=== PATIENT | male | born 1955 | race Hispanic/Latino ===

== ENCOUNTER 2019-11-26 23:47 | Inpatient (IN) | payer OTHER ==
[2019-11-26] MEDS ORDERED: LORazepam 2 MG/ML VIAL IV ONE (23:58)
--- NOTE | 2019-11-27 00:01 | Emergency Department Report ---
ED Head Trauma HPI - General Stated complaint: HIGH BLOOD PRESSURE Time Seen by Provider: 11/26/19 23:57 Source: patient, EMS Mode of arrival: Stretcher Limitations: No Limitations - History of Present Illness Initial comments: Patient is a 64-year-old male that presents emergency room with complaints of fall and elevated blood pressure. Patient presents from a rehab facility. Patient has history of alcohol abuse. Patient recently stopped drinking. Patient states he feels shaky. Patient states he fell yesterday and hit his head and face on the floor. Patient is complaining of headache and facial pain and neck pain. Patient states his pain is better with rest and worse with movement. Patient also presented for elevated blood pressure. Patient was brought in by EMS. Patient was given clonidine in route and his blood pressure increased. Report received from EMS. EMS gave the patient 0.2 of clonidine in route. Patient is currently on a 1013 for suicidal ideations at the psychiatric facility. Patient has a sitter with him. MD Complaint: head injury, head pain, fall -: Sudden Location: frontal, face Loss of Consciousness: no Previous Trauma to this Area: No Place: home Severity: moderate Severity scale (0 -10): 6 Quality: sharp Consistency: constant Associated Symptoms: neck pain. denies: confusion, amnesia, repetitive questioning, vision changes, nausea, vomiting, vertigo, syncope, numbness, weakness, tingling - Related Data Allergies/Adverse reactions: Allergies Allergy/AdvReac Type Severity Reaction Status Date / Time No Known Allergies Allergy Verified 11/27/19 01:09 ED Review of Systems ROS: Stated complaint: HIGH BLOOD PRESSURE Other details as noted in HPI Constitutional: denies: chills, fever Eyes: denies: eye pain, eye discharge, vision change ENT: denies: ear pain, throat pain Respiratory: denies: cough, shortness of breath, wheezing Cardiovascular: denies: chest pain, palpitations Endocrine: no symptoms reported Gastrointestinal: denies: abdominal pain, nausea, diarrhea Genitourinary: denies: urgency, dysuria Musculoskeletal: denies: back pain, joint swelling, arthralgia Skin: denies: rash, lesions Neurological: headache. denies: weakness, paresthesias Psychiatric: denies: anxiety, depression Hematological/Lymphatic: denies: easy bleeding, easy bruising ED Past Medical Hx - Past Medical History Previous Medical History?: Yes Hx Hypertension: Yes - Surgical History Past Surgical History?: No - Family History Family history: no significant - Social History Smoking Status: Never Smoker Substance Use Type: Alcohol ED Physical Exam - General Limitations: No Limitations General appearance: alert, in no apparent distress - Head Head exam: Present: normocephalic - Eye Eye exam: Present: normal appearance, PERRL, periorbital swelling, periorbital tenderness, other (Subconjunctival hematomas noted bilateral eyes. Ecchymosis around both eyes noted) Pupils: Present: normal accommodation - ENT ENT exam: Present: mucous membranes moist - Neck Neck exam: Present: normal inspection. Absent: tenderness, meningismus - Respiratory Respiratory exam: Present: normal lung sounds bilaterally. Absent: respiratory distress, wheezes, rales - Cardiovascular Cardiovascular Exam: Present: regular rate, normal rhythm. Absent: systolic murmur, diastolic murmur, rubs, gallop - GI/Abdominal GI/Abdominal exam: Present: soft, normal bowel sounds. Absent: distended, tenderness, guarding - Rectal Rectal exam: Present: deferred - Extremities Exam Extremities exam: Present: normal inspection - Back Exam Back exam: Present: normal inspection - Neurological Exam Neurological exam: Present: alert, oriented X3 - Psychiatric Psychiatric exam: Present: normal affect, normal mood - Skin Skin exam: Present: warm, dry, intact, normal color, ecchymosis (Bilateral supra and infraorbital). Absent: rash ED Course Vital Signs 11/27/19 11/27/19 11/27/19 00:08 00:17 00:28 Temperature 98.0 F Pulse Rate 124 H 101 H Respiratory 24 24 24 Rate Blood Pressure Blood Pressure 164/111 [Left] O2 Sat by Pulse 95 95 95 Oximetry 11/27/19 11/27/19 11/27/19 00:53 01:01 01:15 Temperature Pulse Rate 123 H Respiratory 18 23 Rate Blood Pressure 156/105 172/109 155/101 Blood Pressure [Left] O2 Sat by Pulse 94 96 94 Oximetry 11/27/19 11/27/19 11/27/19 01:30 01:45 02:00 Temperature Pulse Rate Respiratory 18 12 28 H Rate Blood Pressure 165/101 165/101 150/107 Blood Pressure [Left] O2 Sat by Pulse 97 97 95 Oximetry 11/27/19 11/27/19 11/27/19 02:15 02:30 02:45 Temperature Pulse Rate 115 H 129 H 118 H Respiratory 25 H 15 22 Rate Blood Pressure 163/105 150/107 154/112 Blood Pressure [Left] O2 Sat by Pulse 96 97 96 Oximetry 11/27/19 03:00 Temperature Pulse Rate 122 H Respiratory 21 Rate Blood Pressure 163/105 Blood Pressure [Left] O2 Sat by Pulse 98 Oximetry - Reevaluation(s) Reevaluation #1: Initial evaluation done. Patient will be given Ativan for possible alcohol withdrawal. Patient will be connected to a potline monitor. Patient's blood pressure was treated as needed. Patient will have labs and CTs done. 11/27/19 00:01 Reevaluation #2: Patient having increased shaking. Patient placed on a CIWA protocol 11/27/19 00:39 Reevaluation #3: Patient is EKG and done shows tachycardic rhythm. Patient has not received his fluids yet. Patient will be given fluids. 11/27/19 02:08 Reevaluation #4: Patient's heart rate improved and is a sinus tachycardia With minimal fluids. Patient is still shaking. I discussed all results with patient. I discussed plan of care with patient. Patient agrees with plan of care and admission. Patient to be admitted to the hospitalist service. 11/27/19 02:23 - Consultations Consultation #1: Hospitalist consulted for admission. Hospitalist admit patient. 11/27/19 02:46 - Lab Data Result diagrams: 11/27/19 00:06 11/27/19 00:06 Lab Results 11/27/19 11/27/19 11/27/19 Range/Units 00:06 00:06 00:06 WBC 6.8 (4.5-11.0) K/mm3 RBC 4.42 (3.65-5.03) M/mm3 Hgb 13.2 (11.8-15.2) gm/dl Hct 39.0 (35.5-45.6) % MCV 88 (84-94) fl MCH 30 (28-32) pg MCHC 34 (32-34) % RDW 19.3 H (13.2-15.2) % Plt Count 247 (140-440) K/mm3 Lymph % (Auto) 10.7 L (13.4-35.0) % [place] % (Auto) 5.6 (0.0-7.3) % Eos % (Auto) 0.0 (0.0-4.3) % Baso % (Auto) 0.6 (0.0-1.8) % Lymph # 0.7 L (1.2-5.4) K/mm3 [place] # 0.4 (0.0-0.8) K/mm3 Eos # 0.0 (0.0-0.4) K/mm3 Baso # 0.0 (0.0-0.1) K/mm3 Seg Neutrophils % 83.1 H (40.0-70.0) % Seg Neutrophils # 5.6 (1.8-7.7) K/mm3 Sodium 138 (137-145) mmol/L Potassium 4.0 (3.6-5.0) mmol/L Chloride 96.2 L (98-107) mmol/L Carbon Dioxide 24 (22-30) mmol/L Anion Gap 22 mmol/L BUN 6 L (9-20) mg/dL Creatinine 0.8 (0.8-1.5) mg/dL Estimated GFR > 60 ml/min BUN/Creatinine Ratio 8 % Glucose 142 H (75-100) mg/dL Calcium 8.9 (8.4-10.2) mg/dL Total Bilirubin 1.70 H (0.1-1.2) mg/dL AST 45 H (5-40) units/L ALT 59 H (7-56) units/L Alkaline Phosphatase 124 (35-129) units/L Total Protein 5.9 L (6.3-8.2) g/dL Albumin 4.0 (3.9-5) g/dL Albumin/Globulin Ratio 2.1 % Urine Color (Yellow) Urine Turbidity (Clear) Urine pH (5.0-7.0) Ur Specific [address] (1.003-1.030) Urine Protein (Negative) mg/dL Urine Glucose (UA) (Negative) mg/dL Urine Ketones (Negative) mg/dL Urine Blood (Negative) Urine Nitrite (Negative) Urine Bilirubin (Negative) Urine Urobilinogen (<2.0) mg/dL Ur Leukocyte Esterase (Negative) Urine WBC (Auto) (0.0-6.0) /HPF Urine RBC (Auto) (0.0-6.0) /HPF Urine Bacteria (Auto) (Negative) /HPF Urine Mucus /HPF Salicylates < 0.3 L (2.8-20.0) mg/dL Urine Opiates Screen Urine Methadone Screen Acetaminophen (10.0-30.0) ug/mL Ur Barbiturates Screen Ur Phencyclidine Scrn Ur Amphetamines Screen U Benzodiazepines Scrn Urine Cocaine Screen U Marijuana (THC) Screen Drugs of Abuse Note Plasma/Serum Alcohol (0-0.07) % 11/27/19 11/27/19 11/27/19 Range/Units 00:06 00:06 01:00 WBC (4.5-11.0) K/mm3 RBC (3.65-5.03) M/mm3 Hgb (11.8-15.2) gm/dl Hct (35.5-45.6) % MCV (84-94) fl MCH (28-32) pg MCHC (32-34) % RDW (13.2-15.2) % Plt Count (140-440) K/mm3 Lymph % (Auto) (13.4-35.0) % [place] % (Auto) (0.0-7.3) % Eos % (Auto) (0.0-4.3) % Baso % (Auto) (0.0-1.8) % Lymph # (1.2-5.4) K/mm3 [place] # (0.0-0.8) K/mm3 Eos # (0.0-0.4) K/mm3 Baso # (0.0-0.1) K/mm3 Seg Neutrophils % (40.0-70.0) % Seg Neutrophils # (1.8-7.7) K/mm3 Sodium (137-145) mmol/L Potassium (3.6-5.0) mmol/L Chloride (98-107) mmol/L Carbon Dioxide (22-30) mmol/L Anion Gap mmol/L BUN (9-20) mg/dL Creatinine (0.8-1.5) mg/dL Estimated GFR ml/min BUN/Creatinine Ratio % Glucose (75-100) mg/dL Calcium (8.4-10.2) mg/dL Total Bilirubin (0.1-1.2) mg/dL AST (5-40) units/L ALT (7-56) units/L Alkaline Phosphatase (35-129) units/L Total Protein (6.3-8.2) g/dL Albumin (3.9-5) g/dL Albumin/Globulin Ratio % Urine Color Yellow (Yellow) Urine Turbidity Slightly-cloudy (Clear) Urine pH 7.0 (5.0-7.0) Ur Specific [address] 1.012 (1.003-1.030) Urine Protein <15 mg/dl (Negative) mg/dL Urine Glucose (UA) 50 (Negative) mg/dL Urine Ketones Neg (Negative) mg/dL Urine Blood Sm (Negative) Urine Nitrite Neg (Negative) Urine Bilirubin Neg (Negative) Urine Urobilinogen < 2.0 (<2.0) mg/dL Ur Leukocyte Esterase Mod (Negative) Urine WBC (Auto) 128.0 H (0.0-6.0) /HPF Urine RBC (Auto) 9.0 (0.0-6.0) /HPF Urine Bacteria (Auto) 3+ (Negative) /HPF Urine Mucus Few /HPF Salicylates (2.8-20.0) mg/dL Urine Opiates Screen Urine Methadone Screen Acetaminophen < 5.0 L (10.0-30.0) ug/mL Ur Barbiturates Screen Ur Phencyclidine Scrn Ur Amphetamines Screen U Benzodiazepines Scrn Urine Cocaine Screen U Marijuana (THC) Screen Drugs of Abuse Note Plasma/Serum Alcohol < 0.01 (0-0.07) % 11/27/19 Range/Units 01:00 WBC (4.5-11.0) K/mm3 RBC (3.65-5.03) M/mm3 Hgb (11.8-15.2) gm/dl Hct (35.5-45.6) % MCV (84-94) fl MCH (28-32) pg MCHC (32-34) % RDW (13.2-15.2) % Plt Count (140-440) K/mm3 Lymph % (Auto) (13.4-35.0) % [place] % (Auto) (0.0-7.3) % Eos % (Auto) (0.0-4.3) % Baso % (Auto) (0.0-1.8) % Lymph # (1.2-5.4) K/mm3 [place] # (0.0-0.8) K/mm3 Eos # (0.0-0.4) K/mm3 Baso # (0.0-0.1) K/mm3 Seg Neutrophils % (40.0-70.0) % Seg Neutrophils # (1.8-7.7) K/mm3 Sodium (137-145) mmol/L Potassium (3.6-5.0) mmol/L Chloride (98-107) mmol/L Carbon Dioxide (22-30) mmol/L Anion Gap mmol/L BUN (9-20) mg/dL Creatinine (0.8-1.5) mg/dL Estimated GFR ml/min BUN/Creatinine Ratio % Glucose (75-100) mg/dL Calcium (8.4-10.2) mg/dL Total Bilirubin (0.1-1.2) mg/dL AST (5-40) units/L ALT (7-56) units/L Alkaline Phosphatase (35-129) units/L Total Protein (6.3-8.2) g/dL Albumin (3.9-5) g/dL Albumin/Globulin Ratio % Urine Color (Yellow) Urine Turbidity (Clear) Urine pH (5.0-7.0) Ur Specific [address] (1.003-1.030) Urine Protein (Negative) mg/dL Urine Glucose (UA) (Negative) mg/dL Urine Ketones (Negative) mg/dL Urine Blood (Negative) Urine Nitrite (Negative) Urine Bilirubin (Negative) Urine Urobilinogen (<2.0) mg/dL Ur Leukocyte Esterase (Negative) Urine WBC (Auto) (0.0-6.0) /HPF Urine RBC (Auto) (0.0-6.0) /HPF Urine Bacteria (Auto) (Negative) /HPF Urine Mucus /HPF Salicylates (2.8-20.0) mg/dL Urine Opiates Screen Presumptive negative Urine Methadone Screen Presumptive negative Acetaminophen (10.0-30.0) ug/mL Ur Barbiturates Screen Presumptive positive Ur Phencyclidine Scrn Presumptive negative Ur Amphetamines Screen Presumptive negative U Benzodiazepines Scrn Presumptive negative Urine Cocaine Screen Presumptive negative U Marijuana (THC) Screen Presumptive negative Drugs of Abuse Note Disclamer Plasma/Serum Alcohol (0-0.07) % - EKG Data -: EKG Interpreted by Ar EKG shows normal: sinus rhythm, axis, intervals, QRS complexes, ST-T waves Rate: tachycardia - Radiology Data Radiology results: report reviewed CT HEAD WITHOUT CONTRAST INDICATION: fall. pain. TECHNIQUE: Axial slices were obtained through the head. Coronal and sagittal reformatted images were obtained. COMPARISON: None available. FINDINGS: There is no intracranial hemorrhage or extra-axial fluid collection. Ventricles, basilar cisterns, and sulci appear within normal limits for age. There is no mass lesion or midline shift. No acute territorial infarct is identified. Bone windows demonstrate no acute osseous abnormality. There is mucosal thickening in the maxillary sinuses and a few ethmoid air cells. TECHNIQUE: All CT scans at this facility use dose modulation, iterative reconstruction, automated exposure control, weight based dosing, when appropriate, to reduce radiation dose to as low as re asonably achievable. IMPRESSION: 1. No acute intracranial abnormality. 2. There is mucosal thickening in the maxillary sinuses and a few of air cells. CT facial bones wo con INDICATION: MAIN: fall. FACIAL pain/ SWELLING.. TECHNIQUE: All CT scans at this location are performed using the following dose modulation technique: Automated exposure control. Helical slices were obtained through the facial bones. Coronal and sagittal reformatted images were obtained. COMPARISON: None available. FINDINGS: There is mucosal thickening in the maxillary sinuses and in several ethmoid air cells. No fracture is seen. No dislocation is seen. IMPRESSION: 1. No fracture is seen. There is mucosal thickening in the maxillary sinuses and in several ethmoid air cells CT cervical spine wo con INDICATION: fall. pain.. TECHNIQUE: All CT scans at this location are performed using the following dose modulation technique: Automated exposure control. Helical slices were obtained through the cervical spine. Coronal and sagittal reformatted images were obtained. COMPARISON: None available. FINDINGS: There is discogenic degenerative change throughout the cervical spine with disc space narrowing and osteophyte formation. No fracture or subluxation is seen. The prevertebral soft tissues are unremarkable. Mild atherosclerotic calcifications are noted in the carotid arteries. IMPRESSION: 1. No fracture or subluxation is seen. Degenerative changes are noted. - Medical Decision Making Patient is a 64-year-old male that presents emergency room from a local psychiatric facility. Patient has a history of alcohol abuse and is in a psychiatric facility for suicidal ideations and on a 1013. Patient came to the ER via EMS but with a sitter from the psychiatric facility. Patient had a fall yesterday where he sustained a head injury, facial trauma, bilateral eye ecchymosis and subconjunctival hematomas. Patient also complained of neck pain. Patient had CTs done of his head neck, facial bones. Patient CTs were all negative for acute findings. Patient presented to the ER with malignant hypert ension and alcohol withdrawal. Patient was placed on a CIWA protocol. Patient given Ativan and patient continued to have mild shakes. Patient had labs done which showed an abnormal chemistry, the rest of the labs are unremarkable. Patient's UDS was positive for barbiturates. Patient's tachycardia improved with fluids. Patient was given saline bolus and banana bag. Patient admitted to the hospitalist service and into the ICU for further evaluation and treatment. Differential diagnosis to include, tachycardia, alcohol withdrawal, fall, head injury, facial trauma, facial pain, neck pain, strain, sprain, fracture, electrolyte imbalance, dehydration, malignant hypertension, tachycardia, - Differential Diagnosis Tachycardia, malignant htn, fall, DTs, head injury, facial trauma, neck angelica Critical Care Time: Yes Critical care time in (mins) excluding proc time.: 45 Critical care attestation.: If time is entered above; I have spent that time in minutes in the direct care of this critically ill patient, excluding procedure time. Critical Care Time: 45 minutes ED Disposition Clinical Impression: Malignant hypertension, Alcohol abuse, Neck pain, Facial pain, Tachycardia Alcohol withdrawal Qualifiers: Complication of substance-induced condition: with delirium Qualified Code(s): F10.231 - Alcohol dependence with withdrawal delirium Headache Qualifiers: Headache type: post-traumatic Headache chronicity pattern: acute headache Intractability: intractable Qualified Code(s): G44.311 - Acute post-traumatic he adache, intractable Facial trauma Qualifiers: Encounter type: initial encounter Qualified Code(s): S09.93XA - Unspecified i njury of face, initial encounter Head injury Qualifiers: Encounter type: initial encounter Qualified Code(s): S09.90XA - Unspecified injury of head, initial encounter UTI (urinary tract infection) Qualifiers: Urinary tract infection type: acute cystitis Hematuria presence: with hematuria Qualified Code(s): N30.01 - Acute cystitis with hematuria Disposition: OP ADMIT IP TO THIS HOSP Is pt being admited?: Yes Does the pt Need Aspirin: No Condition: Critical Time of Disposition: 02:27
[2019-11-27] MEDS ORDERED: LORazepam 2 MG/ML VIAL IV ONE (00:22)
[2019-11-27 00:28] LABS: Basophils % (Auto) 0.6 % (0.0-1.8); Hemoglobin 13.2 gm/dl (11.8-15.2); Lymphocytes # (Auto) 0.7 K/mm3 (1.2-5.4); Lymphocytes % (Auto) 10.7 % (13.4-35.0); Mean Corpuscular HGB Conc 34 % (32-34); Mean Corpuscular Volume 88 fl (84-94); Monocytes # (Auto) 0.4 K/mm3 (0.0-0.8); Monocytes % (Auto) 5.6 % (0.0-7.3); Platelet Count 247 K/mm3 (140-440); Red Blood Count 4.42 M/mm3 (3.65-5.03); Red Cell Distribution Width 19.3 % (13.2-15.2)
[2019-11-27 00:57] LABS: Alanine Aminotransferase 59 units/L (7-56); BUN/Creatinine Ratio 8; Blood Urea Nitrogen 6 mg/dL (9-20); Calcium 8.9 mg/dL (8.4-10.2); Hemolysis Index 4
[2019-11-27] MEDS ORDERED: SODIUM CHLORIDE 0.9% 1000 ML 1,000 ML IV ONE (01:00)
[2019-11-27] MEDS ORDERED: THIAMINE 100 MG, FOLIC ACID 1 MG, MULTIPLE VITAMIN INJ, ADULT 10 ML in SODIUM CHLORIDE ... IV ONE ×2 (01:00→04:03)
[2019-11-27 01:16] LABS: Bacteria,Urine 3+ /HPF (Negative); Bilirubin,Urine NEG (Negative); Blood,Urine SM (Negative); Color,Urine Yellow (Yellow); Mucus,Urine FEW /HPF; Protein,Urine <15 mg/dL mg/dL (Negative); Urobilinogen,Urine < 2.0 mg/dL (<2.0)
--- NOTE | 2019-11-27 01:20 | Cat Scan Report ---
CT HEAD WITHOUT CONTRAST INDICATION: fall. pain. TECHNIQUE: Axial slices were obtained through the head. Coronal and sagittal reformatted images were obtained. COMPARISON: None available. FINDINGS: There is no intracranial hemorrhage or extra-axial fluid collection. Ventricles, basilar cisterns, an d sulci appear within normal limits for age. There is no mass lesion or midline shift. No acute delvin torial infarct is identified. Bone windows demonstrate no acute osseous abnormality. There is mucosal thickening in the maxillary s inuses and a few ethmoid air cells. TECHNIQUE: All CT scans at this facility use dose modulation, iterative reconstruction, automated ex posure control, weight based dosing, when appropriate, to reduce radiation dose to as low as reasonab ly achievable. IMPRESSION: 1. No acute intracranial abnormality. 2. There is mucosal thickening in the maxillary sinuses and a few of air cells. Signer Name: Alberto Ocampo MD Signed: 11/27/2019 1:16 AM Workstation Name: [id number]
[2019-11-27 01:21] LABS: Amphetamine Screen,Urine PRESUMPTIVE NEGATIVE; Benzodiazepines Screen,Urine PRESUMPTIVE NEGATIVE; Cannabinoid Screen,Urine PRESUMPTIVE NEGATIVE; Cocaine Screen,Urine PRESUMPTIVE NEGATIVE; Methadone Screen,Urine PRESUMPTIVE NEGATIVE; Opiate Screen,Urine PRESUMPTIVE NEGATIVE
--- NOTE | 2019-11-27 01:35 | Cat Scan Report ---
CT cervical spine wo con INDICATION: fall. pain.. TECHNIQUE: All CT scans at this location are performed using the following dose modulation technique: Automated exposure control. Helical slices were obtained through the cervical spine. Coronal and sagittal refor matted images were obtained. COMPARISON: None available. FINDINGS: There is discogenic degenerative change throughout the cervical spine with disc space narrowing and o steophyte formation. No fracture or subluxation is seen. The prevertebral soft tissues are unremarkable. Mild atherosclerotic calcifications are noted in the carotid arteries. IMPRESSION: 1. No fracture or subluxation is seen. Degenerative changes are noted. Signer Name: Alberto Ocampo MD Signed: 11/27/2019 1:30 AM Workstation Name: [id number]
--- NOTE | 2019-11-27 01:38 | Cat Scan Report ---
CT facial bones wo con INDICATION: MAIN: fall. FACIAL pain/ SWELLING.. TECHNIQUE: All CT scans at this location are performed using the following dose modulation technique: Automated exposure control. Helical slices were obtained through the facial bones. Coronal and sagittal reforma tted images were obtained. COMPARISON: None available. FINDINGS: There is mucosal thickening in the maxillary sinuses and in several ethmoid air cells. No fracture is seen. No dislocation is seen. IMPRESSION: 1. No fracture is seen. There is mucosal thickening in the maxillary sinuses and in several ethmoid air cells Signer Name: Alberto Ocampo MD Signed: 11/27/2019 1:33 AM Workstation Name: [id number]
[2019-11-27] MEDS: LORazepam 2 MG/ML VIAL IV PRN ×8 (02:02→11:21)
[2019-11-27] MEDS ORDERED: dilTIAZem 25 MG/5 ML INJ IV ONE (02:07)
[2019-11-27] MEDS ORDERED: dilTIAZem/D5W 100 MG/100 ML BAG IV SCH (03:00)
[2019-11-27] MEDS ORDERED: dilTIAZem 50 MG/10 ML INJ IV ONE (03:00)
[2019-11-27] MEDS ORDERED: ACETAMINOPHEN 325 MG TAB PO PRN (04:10)
[2019-11-27] MEDS ORDERED: ONDANSETRON 4 MG/2 ML INJ IV PRN (04:10)
--- NOTE | 2019-11-27 04:22 | History and Physical Report ---
History of Present Illness Date of examination: 11/27/19 Chief complaint: Patient transferred from [facility] for delirium tremens and uncontrolled hypertension History of present illness: Partha hoffman is a 64-year-old male that presents to the emergency room with complaints of fall and elevated blood pressure. Patient presents from a [facility] facility. Patient has history of alcohol abuse. Patient recently stopped drinking. Patient is confused, his speech is incomprehensible, appears to be in delirium and I am unable to obtain any history at this time. He is awake and oriented to name only at this time. Apparently he fell yesterday and hit his head and face on the floor. Patient is complaining of headache and facial pain and neck pain. Patient was brought in by EMS. Patient was given clonidine in route . CT of the head and x-rays of the neck and face did not reveal any acute lesions. Patient is being admitted to critical care unit for delirium tremens. Past History Past Medical History: hypertension Past Surgical History: Other (Unable to obtain at this time) Social history: alcohol abuse Family history: other (Unable to obtain at this time as the patient is confused) Medications and Allergies Allergies Allergy/AdvReac Type Severity Reaction Status Date / Time No Known Allergies Allergy Verified 11/27/19 01:09 Active Meds: Active Medications Acetaminophen (Tylenol) 650 mg PO Q6H PRN PRN Reason: Pain MILD(1-3)/Fever >100.5/HANSON Diltiazem HCl (Cardizem) 60 mg PO Q8H ERIC Thiamine HCl 100 mg/ Folic Acid 1 mg/ Multivitamins/Minerals 10 ml/ Sodium Chloride 1,011.2 mls @ 250 mls/hr IV ONCE ONE Stop: 11/27/19 05:02 Last Admin: 11/27/19 03:09 Dose: 250 mls/hr Documented by: Thiamine HCl 100 mg/ Folic Acid 1 mg/ Multivitamins/Minerals 10 ml/ Sodium Chloride 1,011.2 mls @ 250 mls/hr IV ONCE ONE Stop: 11/27/19 08:05 Ceftriaxone Sodium (Rocephin/Ns 1 Gm/50 Ml) 1 gm in 50 mls @ 100 mls/hr IV Q24HR ERIC; Protocol Sodium Chloride (Nacl 0.9% 1000 Ml) 1,000 mls @ 75 mls/hr IV DIRECT ERIC Lorazepam (Ativan) 2 mg IV Q1HR PRN PRN Reason: CIWA-Ar 8-15 Last Admin: 11/27/19 02:02 Dose: 2 mg Documented by: Lorazepam (Ativan) 4 mg IV Q1HR PRN PRN Reason: CIWA-Ar 16-25 Last Admin: 11/27/19 03:35 Dose: 4 mg Documented by: Lorazepam (Ativan) 4 mg IV Q15MIN PRN PRN Reason: CIWA-Ar >25 Ondansetron HCl (Zofran) 4 mg IV Q8H PRN PRN Reason: Nausea And Vomiting Sodium Chloride (Sodium Chloride Flush Syringe 10 Ml) 10 ml IV BID ERIC Sodium Chloride (Sodium Chloride Flush Syringe 10 Ml) 10 ml IV PRN PRN PRN Reason: LINE FLUSH Review of Systems All systems: negative (Review of systems as stated above in the history of present illness otherwise unable to perform at this time as the patient is confused and in delirium from alcohol withdrawal) Exam - Constitutional Vitals: Temp Pulse Resp BP Pulse Ox 98.0 F 122 H 21 163/105 98 11/27/19 00:08 11/27/19 03:00 11/27/19 03:00 11/27/19 03:00 11/27/19 03:00 General appearance: Present: no acute distress, well-nourished, other (Confused and tremulous) - EENT Eyes: Present: PERRL, EOM intact ENT: hearing intact, clear oral mucosa, other (Right subconjunctival hemorrhage and right rossana-orbital hematoma) - Neck Neck: Present: supple, normal ROM. Absent: masses or JVD - Respiratory Respiratory effort: normal Respiratory: bilateral: CTA - Cardiovascular Rhythm: other (Tachycardia) Heart Sounds: Present: S1 & S2 - Extremities Extremities: No edema - Abdominal General gastrointestinal: Present: soft, non-tender. Absent: hepatomegaly, splenomegaly Male genitourinary: Present: deferred - Rectal Rectal Exam: deferred - Integumentary Integumentary: Present: clear (Superficial bruises on the knees), warm, normal turgor - Psychiatric Psychiatric: other (Confused) - Neurologic Neurologic: moves all extremities, other (Tremulous) Results - Labs CBC & Chem 7: 11/27/19 00:06 11/27/19 00:06 Labs: Abnormal lab results 11/27/19 11/27/19 11/27/19 Range/Units 00:06 00:06 00:06 RDW 19.3 H (13.2-15.2) % Lymph % (Auto) 10.7 L (13.4-35.0) % Lymph # 0.7 L (1.2-5.4) K/mm3 Seg Neutrophils % 83.1 H (40.0-70.0) % Chloride 96.2 L (98-107) mmol/L BUN 6 L (9-20) mg/dL Glucose 142 H (75-100) mg/dL Total Bilirubin 1.70 H (0.1-1.2) mg/dL AST 45 H (5-40) units/L ALT 59 H (7-56) units/L Total Protein 5.9 L (6.3-8.2) g/dL Urine WBC (Auto) (0.0-6.0) /HPF Salicylates < 0.3 L (2.8-20.0) mg/dL Acetaminophen (10.0-30.0) ug/mL 11/27/19 11/27/19 Range/Units 00:06 01:00 RDW (13.2-15.2) % Lymph % (Auto) (13.4-35.0) % Lymph # (1.2-5.4) K/mm3 Seg Neutrophils % (40.0-70.0) % Chloride (98-107) mmol/L BUN (9-20) mg/dL Glucose (75-100) mg/dL Total Bilirubin (0.1-1.2) mg/dL AST (5-40) units/L ALT (7-56) units/L Total Protein (6.3-8.2) g/dL Urine WBC (Auto) 128.0 H (0.0-6.0) /HPF Salicylates (2.8-20.0) mg/dL Acetaminophen < 5.0 L (10.0-30.0) ug/mL Assessment and Plan - Patient Problems (1) Alcohol withdrawal delirium Current Visit: Yes Status: Acute Plan to address problem: Admit to CCU Start the patient on IV fluids and CIWA protocol with lorazepam Fall precautions IV fluids and daily banana bag (2) Hypertensive urgency Current Visit: Yes Status: Acute Plan to address problem: Start the patient on Cardizem p.o. every 8 hours IV hydralazine as needed (3) Elevated LFTs Current Visit: Yes Status: Acute Plan to address problem: Mild, 2/2 alcohol abuse Monitor LFTs (4) Tachycardia Current Visit: Yes Status: Acute Plan to address problem: Secondary to delirium tremens Started on Cardizem (5) UTI (urinary tract infection) Current Visit: Yes Status: Acute Qualifiers: Urinary tract infection type: acute cystitis Hematuria presence: with hematuria Qualified Code(s): N30.01 - Acute cystitis with hematuria Plan to address problem: Start the patient on IV antibiotics with Rocephin Await urine cultures and adjust antibiotic once culture results are available
[2019-11-27] MEDS ORDERED: dilTIAZem 60 MG TAB PO SCH (05:00)
[2019-11-27] MEDS ORDERED: SODIUM CHLORIDE 0.9% 1000 ML 1,000 ML ONE (07:35)
[2019-11-27] MEDS: SODIUM CHLORIDE 0.9% 1000 ML 1,000 ML IV SCH ×2 (07:36→20:48)
--- NOTE | 2019-11-27 08:05 | Progress Note ---
Assessment and Plan Assessment and plan: Patient is a 64-year-old maln from [facility] due to SI from MDD with a history of alcohol abuse who presents to [facility] ED with AMS. It appears patient had ground level fall at home then presented to [facility]. He admitted to ICU with Delirium Tremens. Last CIWA score was 23. * CT head without contrast IMPRESSION: 1. No acute intracranial abnormality. 2. There is mucosal thickening in the maxillary sinuses and a few of air cells. * CT face without contrast IMPRESSION: 1. No fracture is seen. There is mucosal thickening in the maxillary sinuses and in several ethmoid air cells * CT cervical spine without contrast IMPRESSION: 1. No fracture or subluxation is seen. Degenerative changes are noted. Alcohol Withdrawal Delirium: treat with CIWA protocol Malignant hypertension: iv labetalol prn Hyperglycemia: check A1C Tranaminitits, Elevated ALT>AST, normal bilirubin, alkaline phosphatase: mild, will follow CMP UTI in a man: treat with IV abx UDS positive for Barbiturates: med review MDD with Suicidal ideation: sitter, consult psych DVT ppx and GI ppx added sq heparin and protonix admitted this morning, prolonged inpatient services 32 minutes History Interval history: Patient was seen and examined. Follow-up on current diagnosis ETOH wd. Overnight uneventful as no events directly reported to me. Patient confused. Imaging, nursing note, chart, labs and old chart reviewed. Discussed with patient. Hospitalist Physical - Physical exam Narrative exam: Gen: WDWN, NAD, Awake, Alert, confused HEENT: > facial brusing, EOMI, PERRL, OP Clear Neck: supple, no adenopathy, no thyromegaly, no JVD CVS/Heart: regular tachycardia, normal S1S2, pulses present bilaterally Chest/Lungs: CTA B, Symmetrical chest expansion, good air entry bilaterally GI/Abdomen: soft, NTND, good bowel sounds, no guarding or rebound /Bladder: no suprapubic tenderness, no CVA or paraspinal tenderness Extermity/Skin: no c/c/e, no obvious rash MSK: FROM x 4 Neuro: CN 2-12 grossly intact, no new focal deficits, tremors Psych: confused - Constitutional Vitals: Temp Pulse Resp BP Pulse Ox 98.0 F 112 H 11 L 149/113 96 11/27/19 00:08 11/27/19 05:30 11/27/19 06:30 11/27/19 06:30 11/27/19 06:30 General appearance: Present: no acute distress, well-nourished, other (Confused and tremulous) Results - Labs CBC & Chem 7: 11/27/19 00:06 11/27/19 00:06 Labs: Laboratory Last Values WBC 6.8 K/mm3 (4.5-11.0) 11/27/19 00:06 RBC 4.42 M/mm3 (3.65-5.03) 11/27/19 00:06 Hgb 13.2 gm/dl (11.8-15.2) 11/27/19 00:06 Hct 39.0 % (35.5-45.6) 11/27/19 00:06 MCV 88 fl (84-94) 11/27/19 00:06 MCH 30 pg (28-32) 11/27/19 00:06 MCHC 34 % (32-34) 11/27/19 00:06 RDW 19.3 % (13.2-15.2) H 11/27/19 00:06 Plt Count 247 K/mm3 (140-440) 11/27/19 00:06 Lymph % (Auto) 10.7 % (13.4-35.0) L 11/27/19 00:06 [place] % (Auto) 5.6 % (0.0-7.3) 11/27/19 00:06 Eos % (Auto) 0.0 % (0.0-4.3) 11/27/19 00:06 Baso % (Auto) 0.6 % (0.0-1.8) 11/27/19 00:06 Lymph # 0.7 K/mm3 (1.2-5.4) L 11/27/19 00:06 [place] # 0.4 K/mm3 (0.0-0.8) 11/27/19 00:06 Eos # 0.0 K/mm3 (0.0-0.4) 11/27/19 00:06 Baso # 0.0 K/mm3 (0.0-0.1) 11/27/19 00:06 Seg Neutrophils % 83.1 % (40.0-70.0) H 11/27/19 00:06 Seg Neutrophils # 5.6 K/mm3 (1.8-7.7) 11/27/19 00:06 Sodium 138 mmol/L (137-145) 11/27/19 00:06 Potassium 4.0 mmol/L (3.6-5.0) 11/27/19 00:06 Chloride 96.2 mmol/L (98-107) L 11/27/19 00:06 Carbon Dioxide 24 mmol/L (22-30) 11/27/19 00:06 Anion Gap 22 mmol/L 11/27/19 00:06 BUN 6 mg/dL (9-20) L 11/27/19 00:06 Creatinine 0.8 mg/dL (0.8-1.5) 11/27/19 00:06 Estimated GFR > 60 ml/min 11/27/19 00:06 BUN/Creatinine Ratio 8 % 11/27/19 00:06 Glucose 142 mg/dL (75-100) H 11/27/19 00:06 Hemoglobin A1c 6.0 % (4-6) 11/27/19 04:44 Calcium 8.9 mg/dL (8.4-10.2) 11/27/19 00:06 Total Bilirubin 1.70 mg/dL (0.1-1.2) H 11/27/19 00:06 AST 45 units/L (5-40) H 11/27/19 00:06 ALT 59 units/L (7-56) H 11/27/19 00:06 Alkaline Phosphatase 124 units/L (35-129) 11/27/19 00:06 Total Protein 5.9 g/dL (6.3-8.2) L 11/27/19 00:06 Albumin 4.0 g/dL (3.9-5) 11/27/19 00:06 Albumin/Globulin Ratio 2.1 % 11/27/19 00:06 Urine Color Yellow (Yellow) 11/27/19 01:00 Urine Turbidity Slightly-cloudy (Clear) 11/27/19 01:00 Urine pH 7.0 (5.0-7.0) 11/27/19 01:00 Ur Specific [place] 1.012 (1.003-1.030) 11/27/19 01:00 Urine Protein <15 mg/dl mg/dL (Negative) 11/27/19 01:00 Urine Glucose (UA) 50 mg/dL (Negative) 11/27/19 01:00 Urine Ketones Neg mg/dL (Negative) 11/27/19 01:00 Urine Blood Sm (Negative) 11/27/19 01:00 Urine Nitrite Neg (Negative) 11/27/19 01:00 Urine Bilirubin Neg (Negative) 11/27/19 01:00 Urine Urobilinogen < 2.0 mg/dL (<2.0) 11/27/19 01:00 Ur Leukocyte Esterase Mod (Negative) 11/27/19 01:00 Urine WBC (Auto) 128.0 /HPF (0.0-6.0) H 11/27/19 01:00 Urine RBC (Auto) 9.0 /HPF (0.0-6.0) 11/27/19 01:00 Urine Bacteria (Auto) 3+ /HPF (Negative) 11/27/19 01:00 Urine Mucus Few /HPF 11/27/19 01:00 Salicylates < 0.3 mg/dL (2.8-20.0) L 11/27/19 00:06 Urine Opiates Screen Presumptive negative 11/27/19 01:00 Urine Methadone Screen Presumptive negative 11/27/19 01:00 Acetaminophen < 5.0 ug/mL (10.0-30.0) L 11/27/19 00:06 Ur Barbiturates Screen Presumptive positive 11/27/19 01:00 Ur Phencyclidine Scrn Presumptive negative 11/27/19 01:00 Ur Amphetamines Screen Presumptive negative 11/27/19 01:00 U Benzodiazepines Scrn Presumptive negative 11/27/19 01:00 Urine Cocaine Screen Presumptive negative 11/27/19 01:00 U Marijuana (THC) Screen Presumptive negative 11/27/19 01:00 Drugs of Abuse Note Disclamer 11/27/19 01:00 Plasma/Serum Alcohol < 0.01 % (0-0.07) 11/27/19 00:06 Active Medications - Current Medications Current Medications: Generic Name Dose Route Start Last Admin Trade Name Freq PRN Reason Stop Dose Admin Acetaminophen 650 mg 11/27/19 04:10 Tylenol PO Q6H PRN Pain MILD(1-3)/Fever >100.5/HANSON Thiamine HCl 100 mg/ Folic 1,011.2 mls @ 250 mls/hr 11/27/19 04:03 11/27/19 07:26 Acid 1 mg/ Multivitamins/ IV 11/27/19 08:05 Not Given Minerals 10 ml/ Sodium ONCE ONE Chloride Ceftriaxone Sodium 1 gm in 50 mls @ 100 mls/hr 11/27/19 10:00 Rocephin/Ns 1 Gm/50 Ml IV Q24HR ERIC Protocol Sodium Chloride 1,000 mls @ 75 mls/hr 11/27/19 04:15 11/27/19 07:36 Nacl 0.9% 1000 Ml IV 75 mls/hr DIRECT ERIC Administration Lorazepam 2 mg 11/27/19 00:22 11/27/19 02:02 Ativan IV 2 mg Q1HR PRN Administration CIWA-Ar 8-15 Lorazepam 4 mg 11/27/19 00:22 11/27/19 05:22 Ativan IV 4 mg Q1HR PRN Administration CIWA-Ar 16-25 Lorazepam 4 mg 11/27/19 00:22 11/27/19 04:55 Ativan IV 4 mg Q15MIN PRN Administration CIWA-Ar >25 Ondansetron HCl 4 mg 11/27/19 04:10 Zofran IV Q8H PRN Nausea And Vomiting Sodium Chloride 10 ml 11/27/19 10:00 Sodium Chloride Flush Syringe 10 Ml IV BID ERIC Sodium Chloride 10 ml 11/27/19 04:10 Sodium Chloride Flush Syringe 10 Ml IV PRN PRN LINE FLUSH
[2019-11-27] MEDS ORDERED: POLYETHYLENE GLYCOL 3350 17 GM POWDER PO PRN (08:08)
[2019-11-27] MEDS: PANTOPRAZOLE 40 MG TAB PO SCH (10:56)
--- NOTE | 2019-11-27 12:40 | Consultation ---
History of Present Illness - Reason for Consult Consult date: 11/27/19 ETOH withdrawal Requesting physician: STEPHANIE BELCHER - History of Present Illness 64 y/o brought to the ED from psych facility secondary to fall. Facial trauma noted but CT head ok. CIWA score greater than 25 so had to come to ICU. Now down to 14 but has taken a significant amount of ativan to achieve this. Past History Past Medical History: hypertension Past Surgical History: Other (Unable to obtain at this time) Social history: alcohol abuse Family history: other (Unable to obtain at this time as the patient is confused) Medications and Allergies Allergies Allergy/AdvReac Type Severity Reaction Status Date / Time No Known Allergies Allergy Verified 11/27/19 01:09 Active Meds: Active Medications Acetaminophen (Tylenol) 650 mg PO Q6H PRN PRN Reason: Pain MILD(1-3)/Fever >100.5/HANSON Heparin Sodium (Porcine) (Heparin) 5,000 unit SUB-Q Q12HR ERIC Ceftriaxone Sodium (Rocephin/Ns 1 Gm/50 Ml) 1 gm in 50 mls @ 100 mls/hr IV Q24HR ERIC; Protocol Sodium Chloride (Nacl 0.9% 1000 Ml) 1,000 mls @ 75 mls/hr IV DIRECT ERIC Last Admin: 11/27/19 07:36 Dose: 75 mls/hr Documented by: Labetalol HCl (Labetalol) 10 mg IV Q4H PRN PRN Reason: Blood Pressure Last Admin: 11/27/19 11:00 Dose: 10 mg Documented by: Lorazepam (Ativan) 2 mg IV Q1HR PRN PRN Reason: CIWA-Ar 8-15 Last Admin: 11/27/19 02:02 Dose: 2 mg Documented by: Lorazepam (Ativan) 4 mg IV Q1HR PRN PRN Reason: CIWA-Ar 16-25 Last Admin: 11/27/19 09:16 Dose: 4 mg Documented by: Lorazepam (Ativan) 4 mg IV Q15MIN PRN PRN Reason: CIWA-Ar >25 Last Admin: 11/27/19 11:21 Dose: 4 mg Documented by: Ondansetron HCl (Zofran) 4 mg IV Q8H PRN PRN Reason: Nausea And Vomiting Pantoprazole Sodium (Protonix) 40 mg PO QDAY ERIC Last Admin: 11/27/19 10:56 Dose: 40 mg Documented by: Polyethylene Glycol (Miralax [id number]) 17 gm PO QDAY PRN PRN Reason: Constipation Sodium Chloride (Sodium Chloride Flush Syringe 10 Ml) 10 ml IV BID ERIC Last Admin: 11/27/19 11:00 Dose: 10 ml Documented by: Sodium Chloride (Sodium Chloride Flush Syringe 10 Ml) 10 ml IV PRN PRN PRN Reason: LINE FLUSH Last Admin: 11/27/19 11:00 Dose: 10 ml Documented by: Exam - Constitutional Vitals: Temp Pulse Resp BP Pulse Ox 98.4 F 127 H 11 L 187/124 96 11/27/19 08:23 11/27/19 11:00 11/27/19 06:30 11/27/19 11:00 11/27/19 06:30 Results - Labs CBC & Chem 7: 11/27/19 00:06 11/27/19 00:06 Labs: Abnormal lab results 11/27/19 11/27/19 11/27/19 Range/Units 00:06 00:06 00:06 RDW 19.3 H (13.2-15.2) % Lymph % (Auto) 10.7 L (13.4-35.0) % Lymph # 0.7 L (1.2-5.4) K/mm3 Seg Neutrophils % 83.1 H (40.0-70.0) % Chloride 96.2 L (98-107) mmol/L BUN 6 L (9-20) mg/dL Glucose 142 H (75-100) mg/dL Total Bilirubin 1.70 H (0.1-1.2) mg/dL AST 45 H (5-40) units/L ALT 59 H (7-56) units/L Total Protein 5.9 L (6.3-8.2) g/dL Urine WBC (Auto) (0.0-6.0) /HPF Salicylates < 0.3 L (2.8-20.0) mg/dL Acetaminophen (10.0-30.0) ug/mL 11/27/19 11/27/19 Range/Units 00:06 01:00 RDW (13.2-15.2) % Lymph % (Auto) (13.4-35.0) % Lymph # (1.2-5.4) K/mm3 Seg Neutrophils % (40.0-70.0) % Chloride (98-107) mmol/L BUN (9-20) mg/dL Glucose (75-100) mg/dL Total Bilirubin (0.1-1.2) mg/dL AST (5-40) units/L ALT (7-56) units/L Total Protein (6.3-8.2) g/dL Urine WBC (Auto) 128.0 H (0.0-6.0) /HPF Salicylates (2.8-20.0) mg/dL Acetaminophen < 5.0 L (10.0-30.0) ug/mL Assessment and Plan 64 y/o male with ETOH abuse in facility for rehab admitted here with fall and ETOH withdrawal. CIWA now just acceptable but will continue to monitor in ICU today to ensure that scores can be maintained less than 25. May be ready for transfer to floor tomorrow. Will restart home medications once withdrawal symptoms are resolved.
[2019-11-27] MEDS: cefTRIAXone/NS 1 GM/50 ML 1 GM/50 ML BAG IV SCH (14:11)
[2019-11-27] MEDS: hydrALAZINE 20 MG/1 ML INJ IV PRN (22:06)
[2019-11-28] MEDS: LORazepam 2 MG/ML VIAL IV PRN ×4 (01:43→09:04)
[2019-11-28] MEDS: hydrALAZINE 20 MG/1 ML INJ IV PRN (01:45)
[2019-11-28 09:11] LABS: Basophils % (Auto) 0.5 % (0.0-1.8); Eosinophils % (Auto) 0.4 % (0.0-4.3); Hematocrit 39.8 % (35.5-45.6); Hemoglobin 13.6 gm/dl (11.8-15.2); Lymphocytes # (Auto) 1.2 K/mm3 (1.2-5.4); Lymphocytes % (Auto) 18.2 % (13.4-35.0); Mean Corpuscular HGB Conc 34 % (32-34); Mean Corpuscular Volume 89 fl (84-94); Monocytes # (Auto) 0.4 K/mm3 (0.0-0.8); Platelet Count 185 K/mm3 (140-440); Red Blood Count 4.47 M/mm3 (3.65-5.03); Red Cell Distribution Width 19.5 % (13.2-15.2)
[2019-11-28 09:39] LABS: Alanine Aminotransferase 32 units/L (7-56); Albumin 3.5 g/dL (3.9-5); Calcium 8.6 mg/dL (8.4-10.2); Hemolysis Index 11
[2019-11-28 09:40] LABS: BUN/Creatinine Ratio 1; Blood Urea Nitrogen < 1 mg/dL (9-20)
[2019-11-28] MEDS: PANTOPRAZOLE 40 MG TAB PO SCH (10:45)
[2019-11-28] MEDS: LISINOPRIL 40 MG TAB PO SCH (10:45)
[2019-11-28] MEDS: cefTRIAXone/NS 1 GM/50 ML 1 GM/50 ML BAG IV SCH (10:46)
[2019-11-28] MEDS: HEPARIN 5,000 UNIT/1 ML VIAL SUB-Q SCH ×2 (10:46→22:12)
[2019-11-28] MEDS ORDERED: MAGNESIUM SULFATE 4 GM/100 ML BAG IV ONE (11:28)
--- NOTE | 2019-11-28 11:38 | Progress Note ---
Assessment and Plan 64 y/o male with ETOH abuse in facility for rehab admitted here with fall and ETOH withdrawal. 1. Added Metoprolol 100 Daily as this was home med 2. Banana bag again today 3. Will start on Seroquel 50 qhs to help with delirium and sleep 4. Continue ICU monitoring. Subjective Date of service: 11/28/19 Interval history: More stable today. Still confused. Only oriented to month. No family present. Sitting up in chair. Very weak. Objective - Constitutional Vitals: Vital Signs - 12hr 11/27/19 11/28/19 11/28/19 23:42 00:00 01:45 Temperature 98.7 F 98.2 F Pulse Rate 108 H 105 H Pulse Rate [ 103 H From Monitor] Respiratory 19 Rate Blood Pressure 165/114 O2 Sat by Pulse Oximetry 11/28/19 11/28/19 11/28/19 02:50 03:00 03:10 Temperature Pulse Rate 106 H 114 H 123 H Pulse Rate [ From Monitor] Respiratory 27 H 20 24 Rate Blood Pressure 127/77 131/81 131/81 O2 Sat by Pulse 94 95 96 Oximetry 11/28/19 11/28/19 11/28/19 03:20 03:21 03:30 Temperature 99.4 F Pulse Rate 156 H 109 H Pulse Rate [ From Monitor] Respiratory 20 24 Rate Blood Pressure 131/81 116/75 O2 Sat by Pulse 96 94 Oximetry 11/28/19 11/28/19 11/28/19 03:40 03:50 04:00 Temperature Pulse Rate 117 H 138 H 112 H Pulse Rate [ 116 H From Monitor] Respiratory 14 18 19 Rate Blood Pressure 116/75 116/75 123/78 O2 Sat by Pulse 96 98 96 Oximetry 11/28/19 11/28/19 11/28/19 04:10 04:15 04:20 Temperature 98.3 F Pulse Rate 115 H 117 H Pulse Rate [ From Monitor] Respiratory 17 19 Rate Blood Pressure 123/78 123/78 O2 Sat by Pulse 98 96 Oximetry 11/28/19 11/28/19 11/28/19 04:30 04:40 04:50 Temperature Pulse Rate 118 H 116 H 120 H Pulse Rate [ From Monitor] Respiratory 25 H 19 20 Rate Blood Pressure 134/92 134/92 134/92 O2 Sat by Pulse 98 98 98 Oximetry 11/28/19 11/28/1920 05:00 05:10 05:20 Temperature Pulse Rate 116 H 117 H 117 H Pulse Rate [ From Monitor] Respiratory 26 H 24 20 Rate Blood Pressure 137/91 137/91 137/91 O2 Sat by Pulse 97 96 97 Oximetry 11/28/19 11/28/19 11/28/19 05:30 05:40 05:50 Temperature Pulse Rate 120 H 128 H Pulse Rate [ From Monitor] Respiratory 17 15 Rate Blood Pressure 142/89 137/91 137/91 O2 Sat by Pulse 99 62 L 99 Oximetry 11/28/19 11/28/19 11/28/19 06:00 06:10 06:20 Temperature Pulse Rate 127 H 123 H Pulse Rate [ From Monitor] Respiratory 17 Rate Blood Pressure 154/118 154/118 154/118 O2 Sat by Pulse 98 86 98 Oximetry 11/28/19 11/28/19 11/28/19 06:30 06:40 06:50 Temperature Pulse Rate 130 H 138 H 137 H Pulse Rate [ From Monitor] Respiratory 25 H 19 24 Rate Blood Pressure 140/116 154/118 154/118 O2 Sat by Pulse 80 L 98 100 Oximetry 11/28/19 11/28/19 11/28/19 07:00 07:12 07:20 Temperature Pulse Rate 110 H Pulse Rate [ From Monitor] Respiratory 23 Rate Blood Pressure 156/114 156/114 156/114 O2 Sat by Pulse 96 87 97 Oximetry 11/28/19 11/28/19 11/28/19 07:30 07:40 07:50 Temperature Pulse Rate 134 H 115 H 135 H Pulse Rate [ From Monitor] Respiratory 15 27 H 23 Rate Blood Pressure 159/120 156/114 156/114 O2 Sat by Pulse 97 96 99 Oximetry 11/28/19 11/28/19 11/28/19 08:00 08:10 08:20 Temperature 99.3 F Pulse Rate 135 H 128 H 128 H Pulse Rate [ 127 H From Monitor] Respiratory 25 H 25 H 17 Rate Blood Pressure 166/105 166/105 166/105 O2 Sat by Pulse 99 98 99 Oximetry 11/28/19 11/28/19 11/28/19 08:30 08:40 08:50 Temperature Pulse Rate 127 H 132 H 145 H Pulse Rate [ From Monitor] Respiratory 18 23 34 H Rate Blood Pressure 135/90 135/90 135/90 O2 Sat by Pulse 97 96 97 Oximetry 11/28/19 11/28/19 11/28/19 09:00 09:10 09:20 Temperature Pulse Rate 140 H 140 H 131 H Pulse Rate [ From Monitor] Respiratory 26 H 27 H 27 H Rate Blood Pressure 141/84 166/105 166/105 O2 Sat by Pulse 98 98 96 Oximetry 11/28/19 11/28/19 11/28/19 09:30 09:40 09:50 Temperature Pulse Rate 136 H 128 H 136 H Pulse Rate [ From Monitor] Respiratory 18 29 H 19 Rate Blood Pressure 132/91 141/84 141/84 O2 Sat by Pulse 98 94 98 Oximetry 11/28/19 11/28/19 11/28/19 10:00 10:10 10:20 Temperature Pulse Rate 137 H 134 H 133 H Pulse Rate [ From Monitor] Respiratory 16 17 Rate Blood Pressure 117/74 117/74 117/74 O2 Sat by Pulse 98 97 98 Oximetry 11/28/19 11/28/19 11/28/19 10:30 10:40 10:45 Temperature Pulse Rate 138 H 132 H 134 H Pulse Rate [ From Monitor] Respiratory 21 22 Rate Blood Pressure 117/74 159/93 159/93 O2 Sat by Pulse 98 98 Oximetry 11/28/19 11/28/19 10:50 11:00 Temperature Pulse Rate 131 H 134 H Pulse Rate [ From Monitor] Respiratory 24 24 Rate Blood Pressure 159/93 154/91 O2 Sat by Pulse 98 Oximetry - Labs CBC & Chem 7: 11/28/19 08:09 11/28/19 08:09 Labs: Abnormal lab results 11/28/19 11/28/19 Range/Units 08:09 08:09 RDW 19.5 H (13.2-15.2) % Seg Neutrophils % 74.9 H (40.0-70.0) % Potassium 3.4 L (3.6-5.0) mmol/L Carbon Dioxide 18 L (22-30) mmol/L BUN < 1 L (9-20) mg/dL Glucose 109 H (75-100) mg/dL Magnesium 1.30 L (1.7-2.3) mg/dL Total Bilirubin 1.90 H (0.1-1.2) mg/dL Albumin 3.5 L (3.9-5) g/dL Medications & Allergies - Medications Allergies/Adverse Reactions: Allergies No Known Allergies Allergy (Verified 11/27/19 01:09) Home Medications: Home Medications Medication Instructions Recorded Confirmed Last Taken Type Melatonin 10MG TAB 10 mg PO QHS 11/28/19 11/28/19 Unknown History Metoprolol 100 mg PO DAILY 11/28/19 11/28/19 11/26/19 08:00 History lisinopriL 20 mg PO DAILY 11/28/19 11/28/19 11/26/19 08:00 History Active Medications: Generic Name Dose Route Start Last Admin Trade Name Freq PRN Reason Stop Dose Admin Acetaminophen 650 mg 11/27/19 04:10 Tylenol PO Q6H PRN Pain MILD(1-3)/Fever >100.5/HANSON Heparin Sodium (Porcine) 5,000 unit 11/28/19 10:00 11/28/19 10:46 Heparin SUB-Q 5,000 unit Q12HR ERIC Administration Hydralazine HCl 10 mg 11/27/19 20:08 11/28/19 01:45 Apresoline IV 10 mg Q3H PRN Administration Hypertension Ceftriaxone Sodium 1 gm in 50 mls @ 100 mls/hr 11/27/19 10:00 11/28/19 10:46 Rocephin/Ns 1 Gm/50 Ml IV 100 mls/hr Q24HR ERIC Administration Protocol Sodium Chloride 1,000 mls @ 75 mls/hr 11/27/19 04:15 11/27/19 20:48 Nacl 0.9% 1000 Ml IV 75 mls/hr DIRECT ERIC Administration Magnesium Sulfate 4 gm in 100 mls @ 25 mls/hr 11/28/19 11:28 Magnesium Sulfate 4gm/100ml IV 11/28/19 15:27 ONCE ONE Potassium Chloride 10 meq in 100 mls @ 100 mls/hr 11/28/19 12:00 Kcl 10meq/100ml IV 11/28/19 15:59 Q1H ERIC Folic Acid 1 mg/ Multivitamins 1,000 mls @ 125 mls/hr 11/28/19 12:00 /Minerals 10 ml/ Thiamine HCl IV 100 mg/ Sodium Chloride .BY DURATION ERIC Sodium Chloride 1,000 mls @ 125 mls/hr 11/28/19 12:00 Nacl 0.9% 1000 Ml IV .BY DURATION ERIC Labetalol HCl 10 mg 11/27/19 08:08 11/27/19 11:00 Labetalol IV 10 mg Q4H PRN Administration Blood Pressure Lisinopril 40 mg 11/28/19 10:00 11/28/19 10:45 Zestril PO 40 mg QDAY ERIC Administration Lorazepam 2 mg 11/27/19 00:22 11/28/19 09:04 Ativan IV 2 mg Q1HR PRN Administration CIWA-Ar 8-15 Lorazepam 4 mg 11/27/19 00:22 11/27/19 09:16 Ativan IV 4 mg Q1HR PRN Administration CIWA-Ar 16-25 Lorazepam 4 mg 11/27/19 00:22 11/27/19 11:21 Ativan IV 4 mg Q15MIN PRN Administration CIWA-Ar >25 Metoprolol Succinate 100 mg 11/28/19 12:00 Metoprolol Xl PO QDAY ERIC Ondansetron HCl 4 mg 11/27/19 04:10 Zofran IV Q8H PRN Nausea And Vomiting Pantoprazole Sodium 40 mg 11/27/19 10:00 11/28/19 10:45 Protonix PO 40 mg QDAY ERIC Administration Polyethylene Glycol 17 gm 11/27/19 08:08 Miralax 3350 PO QDAY PRN Constipation Quetiapine Fumarate 50 mg 11/28/19 22:00 Seroquel PO QHS ERIC Sodium Chloride 10 ml 11/27/19 10:00 11/28/19 10:51 Sodium Chloride Flush Syringe 10 Ml IV 10 ml BID ERIC Administration Sodium Chloride 10 ml 11/27/19 04:10 11/27/19 11:00 Sodium Chloride Flush Syringe 10 Ml IV 10 ml PRN PRN Administration LINE FLUSH
[2019-11-28] MEDS ORDERED: 1: FOLIC ACID 1 MG, MULTIPLE VITAMIN INJ, ADULT 10 ML, THIAMINE 100 MG in SODIUM CHLORID IV SCH (12:00)
[2019-11-28] MEDS: POTASSIUM CHLORIDE 10 MEQ 10 MEQ/100 ML BAG IV SCH ×4 (12:10→16:41)
[2019-11-28] MEDS: METOPROLOL SUCCINATE XL 100 MG TAB PO SCH (12:24)
--- NOTE | 2019-11-28 14:18 | Progress Note ---
Assessment and Plan Assessment and plan: Patient is a 64-year-old maln from [facility] due to SI from MDD with a history of alcohol abuse who presents to [facility] ED with AMS. It appears patient had ground level fall at home then presented to [facility]. He admitted to ICU with Delirium Tremens. . * CT head without contrast IMPRESSION: 1. No acute intracranial abnormality. 2. There is mucosal thickening in the maxillary sinuses and a few of air cells. * CT face without contrast IMPRESSION: 1. No fracture is seen. There is mucosal thickening in the maxillary sinuses and in several ethmoid air cells * CT cervical spine without contrast IMPRESSION: 1. No fracture or subluxation is seen. Degenerative changes are noted. Alcohol Withdrawal Delirium: treat with CIWA protocol Malignant hypertension: iv labetalol prn, Hyperglycemia: check A1C 6.0 Tranaminitits, Elevated ALT>AST, normal bilirubin, alkaline phosphatase: mild, will follow CMP UTI in a man: treat with IV abx, urine culture pending UDS positive for Barbiturates: med review MDD with Suicidal ideation: sitter, consulted psych Multiple abrasions: consult wound care DVT ppx and GI ppx added sq heparin and protonix History Interval history: Patient was seen and examined. Follow-up on current diagnosis ETOH wd. Overnight uneventful as no events directly reported to me. Patient confused. Imaging, nursing note, chart, labs and old chart reviewed. Discussed with patient. Hospitalist Physical - Physical exam Narrative exam: Gen: WDWN, NAD, Awake, Alert, confused HEENT: > facial brusing, EOMI, PERRL, OP Clear Neck: supple, no adenopathy, no thyromegaly, no JVD CVS/Heart: regular tachycardia, normal S1S2, pulses present bilaterally Chest/Lungs: CTA B, Symmetrical chest expansion, good air entry bilaterally GI/Abdomen: soft, NTND, good bowel sounds, no guarding or rebound /Bladder: no suprapubic tenderness, no CVA or paraspinal tenderness Extermity/Skin: multiple abrasions through extremities and face MSK: FROM x 4 Neuro: CN 2-12 grossly intact, no new focal deficits, tremors Psych: confused - Constitutional Vitals: Temp Pulse Resp BP Pulse Ox 98.7 F 142 H 26 H 99/74 97 11/28/19 12:00 11/28/19 12:30 11/28/19 12:30 11/28/19 12:24 11/28/19 12:30 General appearance: Present: no acute distress, well-nourished, other (Confused and tremulous) Results - Labs CBC & Chem 7: 11/28/19 08:09 11/28/19 08:09 Labs: Laboratory Last Values WBC 6.3 K/mm3 (4.5-11.0) 11/28/19 08:09 RBC 4.47 M/mm3 (3.65-5.03) 11/28/19 08:09 Hgb 13.6 gm/dl (11.8-15.2) 11/28/19 08:09 Hct 39.8 % (35.5-45.6) 11/28/19 08:09 MCV 89 fl (84-94) 11/28/19 08:09 MCH 30 pg (28-32) 11/28/19 08:09 MCHC 34 % (32-34) 11/28/19 08:09 RDW 19.5 % (13.2-15.2) H 11/28/19 08:09 Plt Count 185 K/mm3 (140-440) 11/28/19 08:09 Lymph % (Auto) 18.2 % (13.4-35.0) 11/28/19 08:09 [place] % (Auto) 6.0 % (0.0-7.3) 11/28/19 08:09 Eos % (Auto) 0.4 % (0.0-4.3) 11/28/19 08:09 Baso % (Auto) 0.5 % (0.0-1.8) 11/28/19 08:09 Lymph # 1.2 K/mm3 (1.2-5.4) 11/28/19 08:09 Cannon # 0.4 K/mm3 (0.0-0.8) 11/28/19 08:09 Eos # 0.0 K/mm3 (0.0-0.4) 11/28/19 08:09 Baso # 0.0 K/mm3 (0.0-0.1) 11/28/19 08:09 Seg Neutrophils % 74.9 % (40.0-70.0) H 11/28/19 08:09 Seg Neutrophils # 4.8 K/mm3 (1.8-7.7) 11/28/19 08:09 Sodium 140 mmol/L (137-145) 11/28/19 08:09 Potassium 3.4 mmol/L (3.6-5.0) L 11/28/19 08:09 Chloride 101.9 mmol/L (98-107) 11/28/19 08:09 Carbon Dioxide 18 mmol/L (22-30) L 11/28/19 08:09 Anion Gap 24 mmol/L 11/28/19 08:09 BUN < 1 mg/dL (9-20) L 11/28/19 08:09 Creatinine 0.9 mg/dL (0.8-1.5) 11/28/19 08:09 Estimated GFR > 60 ml/min 11/28/19 08:09 BUN/Creatinine Ratio 1 % 11/28/19 08:09 Glucose 109 mg/dL (75-100) H 11/28/19 08:09 Hemoglobin A1c 6.0 % (4-6) 11/27/19 04:44 Calcium 8.6 mg/dL (8.4-10.2) 11/28/19 08:09 Magnesium 1.30 mg/dL (1.7-2.3) L 11/28/19 08:09 Total Bilirubin 1.90 mg/dL (0.1-1.2) H 11/28/19 08:09 AST 27 units/L (5-40) 11/28/19 08:09 ALT 32 units/L (7-56) 11/28/19 08:09 Alkaline Phosphatase 122 units/L (35-129) 11/28/19 08:09 Total Protein 6.3 g/dL (6.3-8.2) 11/28/19 08:09 Albumin 3.5 g/dL (3.9-5) L 11/28/19 08:09 Albumin/Globulin Ratio 1.3 % 11/28/19 08:09 Urine Color Yellow (Yellow) 11/27/19 01:00 Urine Turbidity Slightly-cloudy (Clear) 11/27/19 01:00 Urine pH 7.0 (5.0-7.0) 11/27/19 01:00 Ur Specific [place] 1.012 (1.003-1.030) 11/27/19 01:00 Urine Protein <15 mg/dl mg/dL (Negative) 11/27/19 01:00 Urine Glucose (UA) 50 mg/dL (Negative) 11/27/19 01:00 Urine Ketones Neg mg/dL (Negative) 11/27/19 01:00 Urine Blood Sm (Negative) 11/27/19 01:00 Urine Nitrite Neg (Negative) 11/27/19 01:00 Urine Bilirubin Neg (Negative) 11/27/19 01:00 Urine Urobilinogen < 2.0 mg/dL (<2.0) 11/27/19 01:00 Ur Leukocyte Esterase Mod (Negative) 11/27/19 01:00 Urine WBC (Auto) 128.0 /HPF (0.0-6.0) H 11/27/19 01:00 Urine RBC (Auto) 9.0 /HPF (0.0-6.0) 11/27/19 01:00 Urine Bacteria (Auto) 3+ /HPF (Negative) 11/27/19 01:00 Urine Mucus Few /HPF 11/27/19 01:00 Salicylates < 0.3 mg/dL (2.8-20.0) L 11/27/19 00:06 Urine Opiates Screen Presumptive negative 11/27/19 01:00 Urine Methadone Screen Presumptive negative 11/27/19 01:00 Acetaminophen < 5.0 ug/mL (10.0-30.0) L 11/27/19 00:06 Ur Barbiturates Screen Presumptive positive 11/27/19 01:00 Ur Phencyclidine Scrn Presumptive negative 11/27/19 01:00 Ur Amphetamines Screen Presumptive negative 11/27/19 01:00 U Benzodiazepines Scrn Presumptive negative 11/27/19 01:00 Urine Cocaine Screen Presumptive negative 11/27/19 01:00 U Marijuana (THC) Screen Presumptive negative 11/27/19 01:00 Drugs of Abuse Note Disclamer 11/27/19 01:00 Plasma/Serum Alcohol < 0.01 % (0-0.07) 11/27/19 00:06 Active Medications - Current Medications Current Medications: Generic Name Dose Route Start Last Admin Trade Name Freq PRN Reason Stop Dose Admin Acetaminophen 650 mg 11/27/19 04:10 Tylenol PO Q6H PRN Pain MILD(1-3)/Fever >100.5/HANSON Heparin Sodium (Porcine) 5,000 unit 11/28/19 10:00 11/28/19 10:46 Heparin SUB-Q 5,000 unit Q12HR ERIC Administration Hydralazine HCl 10 mg 11/27/19 20:08 11/28/19 01:45 Apresoline IV 10 mg Q3H PRN Administration Hypertension Ceftriaxone Sodium 1 gm in 50 mls @ 100 mls/hr 11/27/19 10:00 11/28/19 10:46 Rocephin/Ns 1 Gm/50 Ml IV 100 mls/hr Q24HR ERIC Administration Protocol Sodium Chloride 1,000 mls @ 75 mls/hr 11/27/19 04:15 11/27/19 20:48 Nacl 0.9% 1000 Ml IV 75 mls/hr DIRECT ERIC Administration Magnesium Sulfate 4 gm in 100 mls @ 25 mls/hr 11/28/19 11:28 11/28/19 12:11 Magnesium Sulfate 4gm/100ml IV 11/28/19 15:27 25 mls/hr ONCE ONE Administration Potassium Chloride 10 meq in 100 mls @ 100 mls/hr 11/28/19 12:00 11/28/19 13:52 Kcl 10meq/100ml IV 11/28/19 15:59 100 mls/hr Q1H ERIC Administration Folic Acid 1 mg/ Multivitamins 1,000 mls @ 125 mls/hr 11/28/19 12:00 11/28/19 12:25 /Minerals 10 ml/ Thiamine HCl IV 125 mls/hr 100 mg/ Sodium Chloride .BY DURATION ERIC Administration Sodium Chloride 1,000 mls @ 125 mls/hr 11/28/19 12:00 Nacl 0.9% 1000 Ml IV .BY DURATION ERIC Labetalol HCl 10 mg 11/27/19 08:08 11/27/19 11:00 Labetalol IV 10 mg Q4H PRN Administration Blood Pressure Lisinopril 40 mg 11/28/19 10:00 11/28/19 10:45 Zestril PO 40 mg QDAY ERIC Administration Lorazepam 2 mg 11/27/19 00:22 11/28/19 09:04 Ativan IV 2 mg Q1HR PRN Administration CIWA-Ar 8-15 Lorazepam 4 mg 11/27/19 00:22 02/15/20 09:16 Ativan IV 4 mg Q1HR PRN Administration CIWA-Ar 16-25 Lorazepam 4 mg 11/27/19 00:22 11/27/19 11:21 Ativan IV 4 mg Q15MIN PRN Administration CIWA-Ar >25 Metoprolol Succinate 100 mg 11/28/19 12:00 11/28/19 12:24 Metoprolol Xl PO 100 mg QDAY ERIC Administration Ondansetron HCl 4 mg 11/27/19 04:10 Zofran IV Q8H PRN Nausea And Vomiting Pantoprazole Sodium 40 mg 11/27/19 10:00 11/28/19 10:45 Protonix PO 40 mg QDAY ERIC Administration Polyethylene Glycol 17 gm 11/27/19 08:08 Miralax 3350 PO QDAY PRN Constipation Quetiapine Fumarate 50 mg 11/28/19 22:00 Seroquel PO QHS ERIC Sodium Chloride 10 ml 11/27/19 10:00 11/28/19 10:51 Sodium Chloride Flush Syringe 10 Ml IV 10 ml BID ERIC Administration Sodium Chloride 10 ml 11/27/19 04:10 11/27/19 11:00 Sodium Chloride Flush Syringe 10 Ml IV 10 ml PRN PRN Administration LINE FLUSH Nutrition/Malnutrition Assess - Dietary Evaluation Nutrition/Malnutrition Findings: Nutrition Notes Start: 11/28/19 11:42 Freq: Status: Active Protocol: Document 11/28/19 11:42 (Rec: 11/28/19 11:45 [id number]) Nutrition Notes 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 Kevon = 18. Pt asleep and nurse in room at both attempted visits Nutrition Intervention Follow-Up By: 11/30/19 Additional Comments F/u for full nutrition assessment
[2019-11-28] MEDS: SODIUM CHLORIDE 0.9% 1000 ML 1,000 ML IV SCH ×2 (20:15→22:16)
[2019-11-28] MEDS: QUEtiapine 25 MG TAB PO SCH (22:13)
[2019-11-29] MEDS: hydrALAZINE 20 MG/1 ML INJ IV PRN (03:01)
--- NOTE | 2019-11-29 07:34 | Progress Note ---
Assessment and Plan Assessment and plan: Patient is a 64-year-old maln from [facility] due to SI from MDD with a history of alcohol abuse who presents to [facility] ED with AMS. It appears patient had ground level fall at home then presented to [facility]. He admitted to ICU with Delirium Tremens. . * CT head without contrast IMPRESSION: 1. No acute intracranial abnormality. 2. There is mucosal thickening in the maxillary sinuses and a few of air cells. * CT face without contrast IMPRESSION: 1. No fracture is seen. There is mucosal thickening in the maxillary sinuses and in several ethmoid air cells * CT cervical spine without contrast IMPRESSION: 1. No fracture or subluxation is seen. Degenerative changes are noted. Alcohol Withdrawal Delirium: treat with CIWA protocol Malignant hypertension: iv labetalol prn, Hyperglycemia: check A1C 6.0 Tranaminitits, Elevated ALT>AST, normal bilirubin, alkaline phosphatase: mild, will follow CMP UTI in a man: treat with IV abx, urine culture pending UDS positive for Barbiturates: med review MDD with Suicidal ideation: sitter, consulted psych Multiple abrasions: consult wound care DVT ppx and GI ppx added sq heparin and protonix Current CIWA score at 0400 is 7 Disposition: continue inpatient care, transfer out of ICU, will need PT/OT to evaluate, anticipate discharge in 2-3 days History Interval history: Patient was seen and examined. Follow-up on current diagnosis ETOH wd. Overnight uneventful as no events directly reported to me. Patient confused. Imaging, nursing note, chart, labs and old chart reviewed. Discussed with patient. Hospitalist Physical - Physical exam Narrative exam: Gen: WDWN, NAD, Awake, Alert, confused HEENT: > facial brusing, EOMI, PERRL, OP Clear Neck: supple, no adenopathy, no thyromegaly, no JVD CVS/Heart: regular tachycardia, normal S1S2, pulses present bilaterally Chest/Lungs: CTA B, Symmetrical chest expansion, good air entry bilaterally GI/Abdomen: soft, NTND, good bowel sounds, no guarding or rebound /Bladder: no suprapubic tenderness, no CVA or paraspinal tenderness Extermity/Skin: multiple abrasions through extremities and face MSK: FROM x 4 Neuro: CN 2-12 grossly intact, no new focal deficits, tremors Psych: confused - Constitutional Vitals: Temp Pulse Resp BP Pulse Ox 98.0 F 105 H 16 165/114 99 11/29/19 04:39 11/29/19 04:00 11/29/19 04:00 11/29/19 03:01 11/29/19 04:00 General appearance: Present: no acute distress, well-nourished, other (Confused and tremulous) Results - Labs CBC & Chem 7: 11/28/19 08:09 11/28/19 08:09 Labs: Laboratory Last Values WBC 6.3 K/mm3 (4.5-11.0) 11/28/19 08:09 RBC 4.47 M/mm3 (3.65-5.03) 11/28/19 08:09 Hgb 13.6 gm/dl (11.8-15.2) 11/28/19 08:09 Hct 39.8 % (35.5-45.6) 11/28/19 08:09 MCV 89 fl (84-94) 11/28/19 08:09 MCH 30 pg (28-32) 11/28/19 08:09 MCHC 34 % (32-34) 11/28/19 08:09 RDW 19.5 % (13.2-15.2) H 11/28/19 08:09 Plt Count 185 K/mm3 (140-440) 11/28/19 08:09 Lymph % (Auto) 18.2 % (13.4-35.0) 11/28/19 08:09 [place] % (Auto) 6.0 % (0.0-7.3) 11/28/19 08:09 Eos % (Auto) 0.4 % (0.0-4.3) 11/28/19 08:09 Baso % (Auto) 0.5 % (0.0-1.8) 11/28/19 08:09 Lymph # 1.2 K/mm3 (1.2-5.4) 11/28/19 08:09 [place] # 0.4 K/mm3 (0.0-0.8) 11/28/19 08:09 Eos # 0.0 K/mm3 (0.0-0.4) 11/28/19 08:09 Baso # 0.0 K/mm3 (0.0-0.1) 11/28/19 08:09 Seg Neutrophils % 74.9 % (40.0-70.0) H 11/28/19 08:09 Seg Neutrophils # 4.8 K/mm3 (1.8-7.7) 11/28/19 08:09 Sodium 140 mmol/L (137-145) 11/28/19 08:09 Potassium 3.4 mmol/L (3.6-5.0) L 11/28/19 08:09 Chloride 101.9 mmol/L (98-107) 11/28/19 08:09 Carbon Dioxide 18 mmol/L (22-30) L 11/28/19 08:09 Anion Gap 24 mmol/L 11/28/19 08:09 BUN < 1 mg/dL (9-20) L 11/28/19 08:09 Creatinine 0.9 mg/dL (0.8-1.5) 11/28/19 08:09 Estimated GFR > 60 ml/min 11/28/19 08:09 BUN/Creatinine Ratio 1 % 11/28/19 08:09 Glucose 109 mg/dL (75-100) H 11/28/19 08:09 Hemoglobin A1c 6.0 % (4-6) 11/27/19 04:44 Calcium 8.6 mg/dL (8.4-10.2) 11/28/19 08:09 Magnesium 1.30 mg/dL (1.7-2.3) L 11/28/19 08:09 Total Bilirubin 1.90 mg/dL (0.1-1.2) H 11/28/19 08:09 AST 27 units/L (5-40) 11/28/19 08:09 ALT 32 units/L (7-56) 11/28/19 08:09 Alkaline Phosphatase 122 units/L (35-129) 11/28/19 08:09 Total Protein 6.3 g/dL (6.3-8.2) 11/28/19 08:09 Albumin 3.5 g/dL (3.9-5) L 11/28/19 08:09 Albumin/Globulin Ratio 1.3 % 11/28/19 08:09 Urine Color Yellow (Yellow) 11/27/19 01:00 Urine Turbidity Slightly-cloudy (Clear) 11/27/19 01:00 Urine pH 7.0 (5.0-7.0) 11/27/19 01:00 Ur Specific [place] 1.012 (1.003-1.030) 11/27/19 01:00 Urine Protein <15 mg/dl mg/dL (Negative) 11/27/19 01:00 Urine Glucose (UA) 50 mg/dL (Negative) 11/27/19 01:00 Urine Ketones Neg mg/dL (Negative) 11/27/19 01:00 Urine Blood Sm (Negative) 11/27/19 01:00 Urine Nitrite Neg (Negative) 11/27/19 01:00 Urine Bilirubin Neg (Negative) 11/27/19 01:00 Urine Urobilinogen < 2.0 mg/dL (<2.0) 11/27/19 01:00 Ur Leukocyte Esterase Mod (Negative) 11/27/19 01:00 Urine WBC (Auto) 128.0 /HPF (0.0-6.0) H 11/27/19 01:00 Urine RBC (Auto) 9.0 /HPF (0.0-6.0) 11/27/19 01:00 Urine Bacteria (Auto) 3+ /HPF (Negative) 11/27/19 01:00 Urine Mucus Few /HPF 11/27/19 01:00 Salicylates < 0.3 mg/dL (2.8-20.0) L 11/27/19 00:06 Urine Opiates Screen Presumptive negative 11/27/19 01:00 Urine Methadone Screen Presumptive negative 11/27/19 01:00 Acetaminophen < 5.0 ug/mL (10.0-30.0) L 11/27/19 00:06 Ur Barbiturates Screen Presumptive positive 11/27/19 01:00 Ur Phencyclidine Scrn Presumptive negative 11/27/19 01:00 Ur Amphetamines Screen Presumptive negative 11/27/19 01:00 U Benzodiazepines Scrn Presumptive negative 11/27/19 01:00 Urine Cocaine Screen Presumptive negative 11/27/19 01:00 U Marijuana (THC) Screen Presumptive negative 11/27/19 01:00 Drugs of Abuse Note Disclamer 11/27/19 01:00 Plasma/Serum Alcohol < 0.01 % (0-0.07) 11/27/19 00:06 Active Medications - Current Medications Current Medications: Generic Name Dose Route Start Last Admin Trade Name Freq PRN Reason Stop Dose Admin Acetaminophen 650 mg 02/15/20 04:10 Tylenol PO Q6H PRN Pain MILD(1-3)/Fever >100.5/HANSON Heparin Sodium (Porcine) 5,000 unit 11/28/19 10:00 11/28/19 22:12 Heparin SUB-Q 5,000 unit Q12HR ERIC Administration Hydralazine HCl 10 mg 11/27/19 20:08 11/29/19 03:01 Apresoline IV 10 mg Q3H PRN Administration Hypertension Ceftriaxone Sodium 1 gm in 50 mls @ 100 mls/hr 11/27/19 10:00 11/28/19 10:46 Rocephin/Ns 1 Gm/50 Ml IV 100 mls/hr Q24HR ERIC Administration Protocol Sodium Chloride 1,000 mls @ 75 mls/hr 11/27/19 04:15 11/28/19 22:16 Nacl 0.9% 1000 Ml IV 75 mls/hr DIRECT ERIC Administration Folic Acid 1 mg/ Multivitamins 1,000 mls @ 125 mls/hr 11/28/19 12:00 11/28/19 12:25 /Minerals 10 ml/ Thiamine HCl IV 125 mls/hr 100 mg/ Sodium Chloride .BY DURATION ERIC Administration Sodium Chloride 1,000 mls @ 125 mls/hr 11/28/19 12:00 Nacl 0.9% 1000 Ml IV .BY DURATION ERIC Labetalol HCl 10 mg 11/27/19 08:08 11/27/19 11:00 Labetalol IV 10 mg Q4H PRN Administration Blood Pressure Lisinopril 40 mg 11/28/19 10:00 11/28/19 10:45 Zestril PO 40 mg QDAY ERIC Administration Lorazepam 2 mg 11/27/19 00:22 11/28/19 09:04 Ativan IV 2 mg Q1HR PRN Administration CIWA-Ar 8-15 Lorazepam 4 mg 11/27/19 00:22 11/27/19 09:16 Ativan IV 4 mg Q1HR PRN Administration CIWA-Ar 16-25 Lorazepam 4 mg 11/27/19 00:22 11/27/19 11:21 Ativan IV 4 mg Q15MIN PRN Administration CIWA-Ar >25 Metoprolol Succinate 100 mg 11/28/19 12:00 11/28/19 12:24 Metoprolol Xl PO 100 mg QDAY ERIC Administration Ondansetron HCl 4 mg 11/27/19 04:10 Zofran IV Q8H PRN Nausea And Vomiting Pantoprazole Sodium 40 mg 11/27/19 10:00 11/28/19 10:45 Protonix PO 40 mg QDAY ERIC Administration Polyethylene Glycol 17 gm 11/27/19 08:08 Miralax 3350 PO QDAY PRN Constipation Quetiapine Fumarate 50 mg 11/28/19 22:00 11/28/19 22:13 Seroquel PO 50 mg QHS ERIC Administration Sodium Chloride 10 ml 11/27/19 10:00 11/28/19 22:14 Sodium Chloride Flush Syringe 10 Ml IV 10 ml BID ERIC Administration Sodium Chloride 10 ml 11/27/19 04:10 11/27/19 11:00 Sodium Chloride Flush Syringe 10 Ml IV 10 ml PRN PRN Administration LINE FLUSH Nutrition/Malnutrition Assess - Dietary Evaluation Nutrition/Malnutrition Findings: Nutrition Notes Start: 11/28/19 11:42 Freq: Status: Active Protocol: Document 11/28/19 11:42 (Rec: 11/28/19 11:45 [id number]) Nutrition Notes 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 Kevon = 18. Pt asleep and nurse in room at both attempted visits Nutrition Intervention Follow-Up By: 11/30/19 Additional Comments F/u for full nutrition assessment
[2019-11-29] MEDS: PANTOPRAZOLE 40 MG TAB PO SCH (09:49)
[2019-11-29] MEDS: LISINOPRIL 40 MG TAB PO SCH (09:49)
[2019-11-29] MEDS: HEPARIN 5,000 UNIT/1 ML VIAL SUB-Q SCH ×2 (09:50→21:02)
[2019-11-29] MEDS: METOPROLOL SUCCINATE XL 100 MG TAB PO SCH (09:51)
[2019-11-29] MEDS: cefTRIAXone/NS 1 GM/50 ML 1 GM/50 ML BAG IV SCH (09:52)
[2019-11-29] MEDS: QUEtiapine 25 MG TAB PO SCH (21:02)
[2019-11-30 08:57] LABS: BUN/Creatinine Ratio 8; Blood Urea Nitrogen 6 mg/dL (9-20); Calcium 8.9 mg/dL (8.4-10.2); Hemolysis Index 2
[2019-11-30] MEDS: LISINOPRIL 40 MG TAB PO SCH (10:18)
[2019-11-30] MEDS: cefTRIAXone/NS 1 GM/50 ML 1 GM/50 ML BAG IV SCH (10:18)
[2019-11-30] MEDS: METOPROLOL SUCCINATE XL 100 MG TAB PO SCH (10:18)
[2019-11-30] MEDS: PANTOPRAZOLE 40 MG TAB PO SCH (10:19)
[2019-11-30] MEDS: HEPARIN 5,000 UNIT/1 ML VIAL SUB-Q SCH ×2 (10:20→22:46)
[2019-11-30] MEDS ORDERED: MAGNESIUM SULFATE 4 GM/100 ML BAG IV ONE (12:00)
[2019-11-30] MEDS ORDERED: THIAMINE 100 MG, FOLIC ACID 1 MG, MULTIPLE VITAMIN INJ, ADULT 10 ML in SODIUM CHLORIDE ... IV SCH (14:30)
[2019-11-30] MEDS: SODIUM CHLORIDE 0.9% 1000 ML 1,000 ML IV SCH (14:50)
--- NOTE | 2019-11-30 15:23 | Progress Note ---
Assessment and Plan Assessment and plan: 64-year-old maln from [facility] due to SI from MDD with a history of alcohol abuse who presents to [facility] with AMS. It appears patient had ground level fall at home then presented to [facility]. He admitted to ICU with Delirium Tremens. . * CT head without contrast IMPRESSION: 1. No acute intracranial abnormality. 2. There is mucosal thickening in the maxillary sinuses and a few of air cells. * CT face without contrast IMPRESSION: 1. No fracture is seen. There is mucosal thickening in the maxillary sinuses and in several ethmoid air cells * CT cervical spine without contrast IMPRESSION: 1. No fracture or subluxation is seen. Degenerative changes are noted. Alcohol Withdrawal Delirium: Resolving, continue CIWA protocol Hypertensive urgency; improving with BP meds Prediabetes with hyperglycemia: check A1C 6.0 Tranaminitits, Elevated ALT>AST, normal bilirubin, alkaline phosphatase: Likely alcoholic induced hepatitis, no further work-up indicated at this time E faecalis UTI. Antibiotics changed, will need 7 to 10-day course. UDS positive for Barbiturates: med review Suicidal ideation ruled out. Discontinue 1013 Multiple abrasions: Continue wound care DVT ppx and GI ppx added sq heparin and protonix Hypomagnesemia and hypophosphatemia; replete Disposition Home with family tomorrow after electrolytes have been repleted. History Interval history: Review of systems Constitutional: No fevers, no malaise, no joint pains CVS: No chest pain, no orthopnea, no dyspnea on exertion, no pedal edema GI: No abdominal pain, no diarrhea, no vomiting, no constipation Respiratory: no wheezing, no coughing Hospitalist Physical - Physical exam Narrative exam: General.: Appears well, no distress, nontoxic HEENT: Moist mucous membranes, injection of right cornea, extraocular muscles intact, no lymphadenopathy Neck: supple Cardiac: S1-S2 heard Lungs: clear to auscultation bilaterally Abdomen: soft , nontender, nondistended, bowel sounds positive Extremities: no edema clubbing or cyanosis Skin: no rash or lesions Neurologic: no gross focal deficits Psych: calm, and cooperative - Constitutional Vitals: Temp Pulse Resp BP Pulse Ox 98.5 F 103 H 18 139/98 95 11/30/19 12:23 11/30/19 12:23 11/30/19 12:23 11/30/19 12:23 11/30/19 12:23 General appearance: Present: no acute distress, well-nourished, other (Confused and tremulous) Results - Labs CBC & Chem 7: 11/28/19 08:09 11/30/19 08:33 Labs: Laboratory Last Values WBC 6.3 K/mm3 (4.5-11.0) 11/28/19 08:09 RBC 4.47 M/mm3 (3.65-5.03) 11/28/19 08:09 Hgb 13.6 gm/dl (11.8-15.2) 11/28/19 08:09 Hct 39.8 % (35.5-45.6) 11/28/19 08:09 MCV 89 fl (84-94) 11/28/19 08:09 MCH 30 pg (28-32) 11/28/19 08:09 MCHC 34 % (32-34) 11/28/19 08:09 RDW 19.5 % (13.2-15.2) H 11/28/19 08:09 Plt Count 185 K/mm3 (140-440) 11/28/19 08:09 Lymph % (Auto) 18.2 % (13.4-35.0) 11/28/19 08:09 [place] % (Auto) 6.0 % (0.0-7.3) 11/28/19 08:09 Eos % (Auto) 0.4 % (0.0-4.3) 11/28/19 08:09 Baso % (Auto) 0.5 % (0.0-1.8) 11/28/19 08:09 Lymph # 1.2 K/mm3 (1.2-5.4) 11/28/19 08:09 [place] # 0.4 K/mm3 (0.0-0.8) 11/28/19 08:09 Eos # 0.0 K/mm3 (0.0-0.4) 11/28/19 08:09 Baso # 0.0 K/mm3 (0.0-0.1) 11/28/19 08:09 Seg Neutrophils % 74.9 % (40.0-70.0) H 11/28/19 08:09 Seg Neutrophils # 4.8 K/mm3 (1.8-7.7) 11/28/19 08:09 Sodium 139 mmol/L (137-145) 11/30/19 08:33 Potassium 4.0 mmol/L (3.6-5.0) 11/30/19 08:33 Chloride 103.4 mmol/L (98-107) 11/30/19 08:33 Carbon Dioxide 21 mmol/L (22-30) L 11/30/19 08:33 Anion Gap 19 mmol/L 11/30/19 08:33 BUN 6 mg/dL (9-20) L 11/30/19 08:33 Creatinine 0.8 mg/dL (0.8-1.5) 11/30/19 08:33 Estimated GFR > 60 ml/min 11/30/19 08:33 BUN/Creatinine Ratio 8 % 11/30/19 08:33 Glucose 125 mg/dL (75-100) H 11/30/19 08:33 Hemoglobin A1c 6.0 % (4-6) 11/27/19 04:44 Calcium 8.9 mg/dL (8.4-10.2) 11/30/19 08:33 Phosphorus 2.10 mg/dL (2.5-4.5) L 11/30/19 08:33 Magnesium 1.60 mg/dL (1.7-2.3) L 11/30/19 08:33 Total Bilirubin 1.90 mg/dL (0.1-1.2) H 11/28/19 08:09 AST 27 units/L (5-40) 11/28/19 08:09 ALT 32 units/L (7-56) 11/28/19 08:09 Alkaline Phosphatase 122 units/L (35-129) 11/28/19 08:09 Total Protein 6.3 g/dL (6.3-8.2) 11/28/19 08:09 Albumin 3.5 g/dL (3.9-5) L 11/28/19 08:09 Albumin/Globulin Ratio 1.3 % 11/28/19 08:09 Urine Color Yellow (Yellow) 11/27/19 01:00 Urine Turbidity Slightly-cloudy (Clear) 11/27/19 01:00 Urine pH 7.0 (5.0-7.0) 11/27/19 01:00 Ur Specific [place] 1.012 (1.003-1.030) 11/27/19 01:00 Urine Protein <15 mg/dl mg/dL (Negative) 11/27/19 01:00 Urine Glucose (UA) 50 mg/dL (Negative) 11/27/19 01:00 Urine Ketones Neg mg/dL (Negative) 11/27/19 01:00 Urine Blood Sm (Negative) 11/27/19 01:00 Urine Nitrite Neg (Negative) 11/27/19 01:00 Urine Bilirubin Neg (Negative) 11/27/19 01:00 Urine Urobilinogen < 2.0 mg/dL (<2.0) 11/27/19 01:00 Ur Leukocyte Esterase Mod (Negative) 11/27/19 01:00 Urine WBC (Auto) 128.0 /HPF (0.0-6.0) H 11/27/19 01:00 Urine RBC (Auto) 9.0 /HPF (0.0-6.0) 11/27/19 01:00 Urine Bacteria (Auto) 3+ /HPF (Negative) 11/27/19 01:00 Urine Mucus Few /HPF 11/27/19 01:00 Salicylates < 0.3 mg/dL (2.8-20.0) L 11/27/19 00:06 Urine Opiates Screen Presumptive negative 11/27/19 01:00 Urine Methadone Screen Presumptive negative 11/27/19 01:00 Acetaminophen < 5.0 ug/mL (10.0-30.0) L 11/27/19 00:06 Ur Barbiturates Screen Presumptive positive 11/27/19 01:00 Ur Phencyclidine Scrn Presumptive negative 11/27/19 01:00 Ur Amphetamines Screen Presumptive negative 11/27/19 01:00 U Benzodiazepines Scrn Presumptive negative 11/27/19 01:00 Urine Cocaine Screen Presumptive negative 11/27/19 01:00 U Marijuana (THC) Screen Presumptive negative 11/27/19 01:00 Drugs of Abuse Note Disclamer 11/27/19 01:00 Plasma/Serum Alcohol < 0.01 % (0-0.07) 11/27/19 00:06 Active Medications - Current Medications Current Medications: Generic Name Dose Route Start Last Admin Trade Name Freq PRN Reason Stop Dose Admin Acetaminophen 650 mg 11/27/19 04:10 11/30/19 13:53 Tylenol PO 650 mg Q6H PRN Administration Pain MILD(1-3)/Fever >100.5/[facility] Amoxicillin 500 mg 11/30/19 15:00 Trimox PO Q8HR [facility] Folic Acid 1 mg 12/01/19 10:00 Folvite PO DAILY [facility] Heparin Sodium (Porcine) 5,000 unit 11/28/19 10:00 11/30/19 10:20 Heparin SUB-Q 5,000 unit Q12HR ERIC Administration Hydralazine HCl 10 mg 11/27/19 20:08 11/29/19 03:01 Apresoline IV 10 mg Q3H PRN Administration Hypertension Magnesium Sulfate 4 gm in 100 mls @ 25 mls/hr 11/30/19 12:00 11/30/19 12:25 Magnesium Sulfate 4gm/100ml IV 11/30/19 15:59 25 mls/hr ONCE ONE Administration Sodium Chloride 1,000 mls @ 125 mls/hr 11/30/19 13:45 11/30/19 14:50 Nacl 0.9% 1000 Ml IV 125 mls/hr DIRECT ERIC Administration Labetalol HCl 10 mg 11/27/19 08:08 11/27/19 11:00 Labetalol IV 10 mg Q4H PRN Administration Blood Pressure Lisinopril 40 mg 11/28/19 10:00 11/30/19 10:18 Zestril PO 40 mg QDAY ERIC Administration Lorazepam 2 mg 11/27/19 00:22 11/28/19 09:04 Ativan IV 2 mg Q1HR PRN Administration CIWA-Ar 8-15 Lorazepam 4 mg 11/27/19 00:22 11/27/19 09:16 Ativan IV 4 mg Q1HR PRN Administration CIWA-Ar 16-25 Lorazepam 4 mg 11/27/19 00:22 11/27/19 11:21 Ativan IV 4 mg Q15MIN PRN Administration CIWA-Ar >25 Metoprolol Succinate 100 mg 11/28/19 12:00 11/30/19 10:18 Metoprolol Xl PO 100 mg QDAY ERIC Administration Multivitamins 1 each 12/01/19 10:00 Theragran Tab PO DAILY [facility] Ondansetron HCl 4 mg 11/27/19 04:10 Zofran IV Q8H PRN Nausea And Vomiting Pantoprazole Sodium 40 mg 11/27/19 10:00 11/30/19 10:19 Protonix PO 40 mg QDAY ERIC Administration Polyethylene Glycol 17 gm 11/27/19 08:08 Miralax 3350 PO QDAY PRN Constipation Quetiapine Fumarate 50 mg 11/28/19 22:00 11/29/19 21:02 Seroquel PO 50 mg QHS ERIC Administration Sodium Chloride 10 ml 11/27/19 10:00 11/30/19 10:20 Sodium Chloride Flush Syringe 10 Ml IV 10 ml BID ERIC Administration Sodium Chloride 10 ml 11/27/19 04:10 11/27/19 11:00 Sodium Chloride Flush Syringe 10 Ml IV 10 ml PRN PRN Administration LINE FLUSH Sodium Phosphate 250 mg 11/30/19 18:00 K-Phos Neutral PO QID ERIC Thiamine HCl 100 mg 12/01/19 10:00 Vitamin B-1 PO QDAY ERIC Nutrition/Malnutrition Assess - Dietary Evaluation Nutrition/Malnutrition Findings: Nutrition Notes Start: 11/28/19 11:42 Freq: Status: Active Protocol: Document 11/30/19 12:00 CC (Rec: 11/30/19 12:07 CC [id number]) Co-Sign 11/30/19 12:00 LP Nutrition Notes Initial or Follow up Brief Note Other Pertinent Diagnosis wounds on L and R face, AMS, h /o EtOH abuse Current Diet Regular Labs/Tests Phos 2.1 Mg 1.6 Pertinent Medications Reviewed Height 6 ft 4 in Weight 84.3 kg [place] Body Weight (kg) 91.81 BMI 22.6 Weight change and time frame 7.6%/10 days Weight Status Appropriate Subjective/Other Information F/U for assesment. Pt reported his appetite was not good [employer] . Pt reported his appetite has been poor for 5-10days [employer]. Pt reported he has had unitentional wt loss of 10- 15lbs in 10 days. Pt reported his appetite has been good while here and would like more soup. Per pt chart he has been consuming 75-100% of meals. Burn Absent Trauma Absent GI Symptoms Nausea,Vomiting Current % PO Good (75-100%) Minimum of two criteria No Interpretation of Weight Loss (severe) >2% in 1 week Nutrition Intervention Revisit per MD consult or patient Sign Off request:
[2019-11-30] MEDS: AMOXICILLIN 500 MG CAP PO SCH ×2 (16:45→22:45)
[2019-11-30] MEDS: K-PHOS NEUTRAL 250 MG TAB PO SCH ×2 (18:41→22:45)
[2019-11-30] MEDS: QUEtiapine 25 MG TAB PO SCH (22:48)
[2019-12-01] MEDS: SODIUM CHLORIDE 0.9% 1000 ML 1,000 ML IV SCH (00:26)
[2019-12-01] MEDS: AMOXICILLIN 500 MG CAP PO SCH (06:06)
--- NOTE | 2019-12-01 08:12 | Event Note ---
Date: 12/01/19 Code samara called. Patient had generalized tonic clonic activity witnessed, with stool incontinence, became incoherent, tachycardia and cyanotic with increased respiratory rate. Initially unresponsive lasting few minutes. Decision to intubate was held as mental status began to improve and patient maintaining Airway. Will proceed with work up including chest xray, labs, head ct if needed, neuro consult and transfer to [facility] for monitoring CCT 35 mins. Attending notified
--- NOTE | 2019-12-01 08:23 | XRay Report ---
CHEST 1 VIEW INDICATION / CLINICAL INFORMATION: sob. COMPARISON: None available. FINDINGS: SUPPORT DEVICES: None. HEART / MEDIASTINUM: No significant abnormality. LUNGS / PLEURA: No significant pulmonary or pleural abnormality. No pneumothorax. ADDITIONAL FINDINGS: No significant additional findings. IMPRESSION: 1. No significant change Signer Name: Marcel Deal MD Signed: 12/01/2019 8:19 AM Workstation Name: [id number]
[2019-12-01] MEDS ORDERED: MAGNESIUM SULFATE 1 GM in SODIUM CHLORIDE 0.9% 50 ML IV ONE (09:00)
[2019-12-01 09:27] LABS: Alanine Aminotransferase 60 units/L (7-56); Albumin 3.3 g/dL (3.9-5); BUN/Creatinine Ratio 9; Blood Urea Nitrogen 7 mg/dL (9-20); Calcium 8.5 mg/dL (8.4-10.2); Hemolysis Index 7
[2019-12-01] MEDS ORDERED: LORazepam 2 MG/ML VIAL IV PRN (09:37)
[2019-12-01] MEDS ORDERED: D5W/0.45% NACL/KCL 10 MEQ 10 MEQ/1,000 ML BAG IV SCH (10:00)
[2019-12-01] MEDS ORDERED: THIAMINE 100 MG TAB PO SCH (10:00)
[2019-12-01] MEDS ORDERED: MULTIVITAMINS ,THERAPEUTIC TAB PO SCH (10:00)
[2019-12-01] MEDS ORDERED: levETIRAcetam 1,000 MG in DEXTROSE 5% IN WATER 100 ML IV SCH (10:00)
[2019-12-01] MEDS ORDERED: FOLIC ACID 1 MG TAB PO SCH (10:00)
[2019-12-01] MEDS: LORazepam 2 MG/ML VIAL IV PRN ×2 (10:20→12:25)
[2019-12-01] MEDS ORDERED: SODIUM CHLORIDE 0.9% 1000 ML 1,000 ML ONE (10:32)
[2019-12-01] MEDS: HEPARIN 5,000 UNIT/1 ML VIAL SUB-Q SCH (10:35)
[2019-12-01] MEDS ORDERED: SODIUM CHLORIDE 0.9% 1000 ML 2,000 ML IV ONE ×2 (10:58→12:05)
[2019-12-01 11:46] LABS: ABG HCO3 13.5 mmol/L (20.0-26.0); ABG Methemoglobin 0.4 % (0.0-1.5); ABG Oxygen Saturation 97.4 % (95.0-99.0); ABG PCO2 21.7 mm Hg; ABG PH 7.412 pH Units (7.350-7.450); ABG PO2 89.6 mm Hg (80.0-90.0)
[2019-12-01 11:55] VITALS: BP 66/38
[2019-12-01] MEDS ORDERED: CEFEPIME/NS 2 GM/100 ML 2 GM/100 ML BAG IV SCH (12:00)
[2019-12-01] MEDS ORDERED: DOPamine/D5W 800 MG/250 ML 800 MG/250 ML BAG IV SCH (12:00)
[2019-12-01] MEDS ORDERED: metroNIDAZOLE/NS 500 MG/100 ML 500 MG/100 ML BAG IV SCH (12:30)
[2019-12-01] MEDS ORDERED: VANCOMYCIN 250 MG/10 ML ORAL LIQD PO SCH (12:30)
[2019-12-01] MEDS ORDERED: LACTATED RINGERS 2,000 ML IV ONE (12:55)
[2019-12-01] MEDS ORDERED: NORepinephrine/NS 4 MG-250 ML 4 MG/250 ML BAG IV SCH ×2 (13:00)
--- NOTE | 2019-12-01 13:52 | Event Note ---
Date: 12/01/19 Called to bedside by nurse secondary to bradycardia and hypotension. No pulse. Given atropine 1 and started CPR. Patient given a total of 8 epi's. 1 bicarb plus the atropine. ROSC achieved once but soon lost after drugs wore off. Primary physician spoke to patient first then I went and had a discussion with the daughter. Unsure of time of as IMS called the code. CCT 31 minutes.
--- NOTE | 2019-12-01 15:26 | Death Summary ---
Summary - Providers Consults: 11/27/19 08:08 Consult to Mental Health [CONS] Urgent Reason For Exam: psych 11/29/19 09:23 Occupational Therapy Evaluate and Treat [CONS] Routine Comment: Reason For Exam: ADLs evaluation Physical Therapy Evaluation and Treat [CONS] Routine Comment: Reason For Exam: gait evaluation/ambulatory dysfunction 12/01/19 09:37 Consult to Physician [CONS] Routine Comment: Consulting Provider: YU HORNE Physician Instructions: Reason For Exam: seizure 12/01/19 11:05 Consult to Physician [CONS] Routine Comment: Consulting Provider: TRUDY DUMONT Physician Instructions: Reason For Exam: sepsis 12/01/19 11:06 Consult to PICC Line RN [CONS] Stat Reason For Exam: vasopressors Type Line:: PICC Consult to Physician [CONS] Routine Comment: Consulting Provider: ANDRES HAIRSTON Physician Instructions: Reason For Exam: icu care 12/01/19 11:07 Consult to PICC Line RN [CONS] Stat Reason For Exam: shock Type Line:: PICC Attending: RICKY DIAZ MD - summary Date of admission: 11/27/19 05:27 Date of : 12/01/19
--- NOTE | 2019-12-01 17:23 | Electroencephalogram Report ---
Electroencephalogram EEG Date of exam: 12/01/19 History: Patient is a 64-year-old male with a history of alcohol abuse, who presented on , after a fall and was noted to have elevated blood pressure. The patient reportedly had recently stopped drinking, and was found to be in delirium tremens. On the morning of 12/01/2019, patient reportedly had a generalized tonic-clonic seizure, after which he returned to baseline of mental status. Impression: 1. No seizures or epileptiform activity noted. 2. Pattern indicative of alpha coma, as there is a notable EEG pattern resembling slow-wave sleep, and patient is not noted to be blinking during the EEG recording. Further, patient was reportedly awake at the time of recording. Description: The waking background shows spindle waves resembling slow-wave sleep. Posteriorly, there is a well-developed alpha rhythm of [10] Hz which is symmetrical. Patient was reportedly awake yet confused during recording. No blinking noted during recording. Photic stimulation and hyperventilation were not performed. Of note, the patient was noted to be sweating profusely, and therefore had significant feed and movement artifact during the EEG recording. Throughout, the recording there are no epileptiform abnormalities, focal or lateralizing features, or significant interhemispheric findings. Interpretation: Background consistent with alpha coma/spindle coma is consistent with severe bihemispheric dysfunction. Clinical correlation advised. No seizures or epileptiform activity noted.
--- NOTE | 2019-12-02 10:59 | Event Note ---
Date: 12/01/19 Was called to see patient as consult for possible seizure, which had occurred earlier in the day. Patient had reportedly returned to baseline of mental status after seizure, and was not noted to have any more clinical seizures. When arrived at bedside, patient had already coded and was receiving CPR by ICU team. Neurology Consult not able to be done as patient unfortunately did not return to spontaneous circulation.
== END 2019-12-01 17:00 | DRG 305 ==
LOC: ED 23:47 → CC1 11-27 05:27 → 3A 11-29 11:48 → CC1 12-01 08:17
PROVIDERS: ADMIT Internal Medicine; ATTEND Internal Medicine
PROC: 5A12012 Performance of Cardiac Output, Single, Manual (ICD-10-PCS; principal; 2019-12-01)
PROC: 05HY33Z Insertion of Infusion Device into Upper Vein, Percutaneous Approach (ICD-10-PCS; 2019-12-01)
PROC: 4A033R1 Measurement of Arterial Saturation, Peripheral, Percutaneous Approach (ICD-10-PCS; 2019-12-01)
DX: I16.0 Hypertensive urgency (principal); N30.01 Acute cystitis with hematuria; R73.9 Hyperglycemia, unspecified; F32.9 Major depressive disorder, single episode, unspecified; I10 Essential (primary) hypertension; G44.311 Acute post-traumatic headache, intractable; F10.10 Alcohol abuse, uncomplicated; Y90.9 Presence of alcohol in blood, level not specified; W18.39XA Other fall on same level, initial encounter; Y93.89 Activity, other specified; Y92.098 Other place in other non-institutional residence as the place of occurrence of the external cause; Y99.8 Other external cause status
CPT/HCPCS: 36415; 36600; 70450; 70486; 71045; 72125; 80048; 80053; 80307; 80320; 81001; 82803; 82962; 83036; 83735; 84100; 84484; 85025; 85027; 87076; 87086; 87186; 93005; 93010; 95819; 96374; 96375; G0378; G0480; J0360; J0696; J1265; J1644; J1953; J2060; J3370; J3411; J3475; J3480; J7030; J7120